=== PATIENT | female | born 1970 | race Caucasian/White ===

== ENCOUNTER 2016-05-13 20:38 | Emergency (ER) | payer OTHER ==
[~2016-05-13] VITALS: Ht 167.6 cm; Wt 98.0 kg
[~2016-05-13 20:38] MED LIST: 'CLONIDINE0.1 MG PO; 'PARAFON FORTE500 M1 PO; ALBUTEROL0.09 MG/A2 IH; ALBUTEROL0.09 MG/A2 INH; ALBUTEROL2.5 MG/0.5 INH; ALL DAY ALLERGY10 MG PO; ALPRAZOLAM2 MG PO; AMITRIPTYLINE25 MG PO; AMOXICILLIN500 M2 PO; AMOXICILLIN500 MG PO; AMOXIL500 MG PO; ANAPROX DS550 MG PO; ARTHRITIS PAI42.5 GM TP; ATARAX,VISTARIL50 MG PO; ATIVAN; ATIVAN0.5 MG PO; ATIVAN1 MG PO; AUGMENTIN 875 M1 TAB PO; AUGMENTIN 875875 MG PO; AYGESTIN5 MG PO; BACTRIM DS 8001 TA1 PO; BACTRIM DS 8001 TAB PO; BENADRYL12.5 MG/5 PO; BENADRYL25 M2 PO; BENADRYL25 MG PO; BENADRYL50 MG PO; BENTYL20 MG PO; CARBIDOPA/LEVOD1 TA1 PO; CATAFLAM50 MG PO; CELEXA10 MG PO; CELEXA40 MG PO; CETIRIZINE HCL10 M1 PO; CIPRO250 MG PO; CIPRO500 MG PO; CIPROFLOXACIN500 MG PO; CITALOPRAM HYDR40 MG PO; CLEOCIN150 MG PO; COGENTIN1 MG PO; COMPAZINE10 MG PO; CORDROL20 MG PO; CORTISPORIN SUS10 ML OT; CYCLOBENZAPRINE10 MG PO; CYCLOBENZAPRINE5 M3 PO; DARVOCET N 1001 TAB PO; DAYPRO600 M1 PO; DEPAKOTE500 MG PO; DESYREL100 MG PO; DIAZEPAM10 MG PO; DICLOFENAC POTA50 MG PO; DICLOFENAC50 MG PO; DIFLUCAN150 MG PO; DILANTIN KAPSE100 MG PO; DILANTIN PO; DILANTIN100 MG PO; FIORICET 50-301 EACH PO; FLAGYL500 MG PO; FLEXERIL10 MG PO; FLEXERIL5 MG PO; FLONASE 0.05% 121 EA NAS; FLUVOXAMINE100 MG PO; FUROSEMIDE40 MG PO; Fleet Adult Enem1 EA R; HALDOL0.5 M1 PO; HYDROCODONE BIT1 T11 PO; HYDROXYZINE HCL25 MG PO; IBU-8800 MG PO; IBU800 M1 PO; IMITREX50 MG; IMITREX50 MG PO; K-DUR 20MEQ20 MEQ PO; K-TAB20 MEQ PO; KEFLEX500 MG PO; KENALOG0.1% TP; LASIX40 MG PO; LIDOCAINE HCL100 M1 MM; LOMOTIL 0.025 M1 TA1 PO; LUVOX100 MG PO; MACROBID100 M1 PO; MEDROL DOSEPAK4 MG PO; MELLARIL50 MG PO; MIRALAX POWDER17 G1 PO; MOBIC7.5 MG PO; MOTRIN800 MG PO; MUCINEX1200 M1 PO; MYCOSTATIN100000 U/M PO; Miralax Powder255 GM PO; NAPROSYN500 MG PO; NATURE'S BLEND F1 MG PO; NEOSPORIN1 OIN OP; NEURONTIN300 MG PO; NEURONTIN400 MG PO; NORCO 5-325 TA1 EACH PO; NORFLEX100 MG PO; NYSTATIN CREAM15 GM T; OMEPRAZOLE40 MG PO; ONE DAILY WOMEN1 TAB PO; OXYBUTYNIN10 MG PO; PEPCID20 MG PO; PEPCID40 MG PO; PHENERGAN25 M1 PO; POTASSIUM CHLO25 MEQ PO; PREDNICOT20 MG PO; PREDNISONE10 MG PO; PREDNISONE50 MG PO; PRILOSEC20 M1 PO; PRILOSEC20 MG; PROVENTIL0.09 MG/AC IH; PYRIDIUM200 M1 PO; Phenergan25 MG PO; ROBAXIN500 MG PO; ROBAXIN750 MG PO; SEPTRA DS 800 M1 TAB PO; SEROQUEL XR400 MG PO; SUBOXONE 8 MG-1 EACH SL; SUMYCIN,ACHROM500 M1 PO; TEGRETOL200 MG PO; TESSALON PERLE200 MG PO; THERA TABS1 TAB PO; THORAZINE10 MG PO; THORAZINE100 MG PO; TORADOL10 MG PO; TRAMADOL HCL50 MG PO; TRAZADONE HYDR100 MG; TRAZODONE100 MG PO; TRIMOX500 MG PO; TYLENOL W/ CODEI5 ML PO; TYLENOL W/CODEI1 TA2 PO; ULTRAM50 MG PO; VALIUM10 MG PO; VALIUM2 MG PO; VENTOLIN NEBULES3 ML IH; VIBRAMYCIN100 MG PO; VICODIN 5-3001 EACH PO; VICODIN 500 MG-1 TAB PO; VISTARIL25 M1; VISTARIL50 MG PO; VITAMIN B-11 TAB PO; VOLTAREN50 M1 PO; VOLTAREN75 MG PO; VRAYLAR3 MG PO; Ventolin 02.5 MG/3 M INH; XANAX0.5 MG PO; XANAX1 MG; XANAX1 MG PO; XANAX2 MG PO; ZITHROMAX Z PA250 MG PO; ZITHROMAX250 MG PO; ZOFRAN 4 MG ED2 TAB PO; ZOFRAN ODT4 MG SL; ZOFRAN ODT8 MG PO; ZOFRAN4 MG PO; Zofran4 MG PO
[2016-05-13 21:04] LABS: BASO % 0.5 % (0.0-1.0); EOS # 0.1 10*3/uL (0.0-0.4); EOS % 1.9 % (1.0-4.0); HEMATOCRIT 35.6 % (37.0-47.0); HEMOGLOBIN 11.6 g/dl (12.0-16.0); LYMPH # 3.4 10*3/uL (1.3-4.4); LYMPH % 46.6 % (27.0-41.0); MEAN CELL VOLUME 84.8 fl (81.0-99.0); MEAN CORPUSCULAR HGB 27.6 pg (27.0-31.0); MEAN CORPUSCULAR HGB CONC 32.6 g/dl (33.0-37.0); MEAN PLATELET VOLUME 9.5 fl (9.6-12.3); MONO # 0.6 10*3/uL (0.1-1.0); MONO % 7.7 % (3.0-9.0); NEUT # 3.1 10*3/uL (2.3-7.9); PLATELET COUNT AUTOMATED 259 10*3/uL (130-400); RED CELL DISTRI WIDTH 16.7 % (0-14.5); WHITE BLOOD COUNT 7.3 10*3/uL (4.8-10.8)
[2016-05-13 21:14] LABS: PROTHROMBIN TIME 10.6 SECONDS (9.0-12.4)
[2016-05-13 21:23] LABS: ALBUMIN 3.5 gm/dl (3.1-4.5); ALKALINE PHOSPHATASE 93 U/L (45-117); BILIRUBIN, TOTAL 0.3 mg/dl (0.2-1.0); BUN 4 mg/dl (7-24); CARBON DIOXIDE 27 mmol/L (21-32); CHLORIDE 105 mmol/L (98-107); EST GLOM FILT AFRICAN AMERICAN > 60 ml/min; GLUCOSE 128 mg/dL (65-99); MAGNESIUM 2.1 mg/dL (1.5-2.1); POTASSIUM 3.7 mmol/L (3.5-5.1); SGOT/AST 13 IU/L (3-35); SGPT/ALT 14 U/L (12-78); SODIUM 141 mmol/L (136-145); TOTAL PROTEIN 7.3 gm/dL (6.4-8.2)
[2016-05-13 21:25] LABS: TROPONIN I < 0.015 ng/ml (<0.5)
[2016-05-14] MEDS ORDERED: SUBOXONE 8 MG-1 EACH SL (01:11)
[2016-07-01] MEDS ORDERED: PRILOSEC10 MG/Pack PO (20:41)
[2016-07-01] MEDS ORDERED: KENALOG 0.1%80 GM T (22:24)
[2016-07-01] MEDS ORDERED: MACROBID100 M1 PO (22:24)
[2016-07-01] MEDS ORDERED: Motrin,Rufen800 MG PO (22:24)
== END 2016-05-14 02:00 | disposition left against medical advice (07) ==
LOC: ED 20:38
PROVIDERS: Student in an Organized Health Care Education/Training Program
DX: R07.89 Other chest pain (principal); F17.210 Nicotine dependence, cigarettes, uncomplicated; F41.9 Anxiety disorder, unspecified; J44.9 Chronic obstructive pulmonary disease, unspecified; G89.29 Other chronic pain; M51.36 Other intervertebral disc degeneration, lumbar region; F32.9 Major depressive disorder, single episode, unspecified; E11.65 Type 2 diabetes mellitus with hyperglycemia; E66.9 Obesity, unspecified; Z68.34 Body mass index [BMI] 34.0-34.9, adult; Z98.51 Tubal ligation status; Z98.890 Other specified postprocedural states; Z91.018 Allergy to other foods

== ENCOUNTER 2016-07-10 09:52 | Emergency (ER) | payer OTHER ==
[~2016-07-10 09:52] MED LIST changes: +KENALOG 0.1%80 GM T; +Motrin,Rufen800 MG PO; +PRILOSEC10 MG/Pack PO
== END 2016-07-10 10:48 | disposition home or self-care (01) ==
LOC: ED 09:52
DX: T23.231A Burn of second degree of multiple right fingers (nail), not including thumb, initial encounter (principal); F17.200 Nicotine dependence, unspecified, uncomplicated; Z91.018 Allergy to other foods; X58.XXXA Exposure to other specified factors, initial encounter; Y93.89 Activity, other specified; Y92.9 Unspecified place or not applicable; Y99.9 Unspecified external cause status

== ENCOUNTER 2016-07-22 16:26 | Emergency (ER) | payer OTHER ==
[~2016-07-22] VITALS: Wt 76.2 kg
[2016-07-22 17:10] LABS: BASO % 0.6 % (0.0-1.0); EOS # 0.2 10*3/uL (0.0-0.4); EOS % 3.1 % (1.0-4.0); HEMATOCRIT 37.6 % (37.0-47.0); HEMOGLOBIN 12.1 g/dl (12.0-16.0); LYMPH # 3.6 10*3/uL (1.3-4.4); LYMPH % 53.7 % (27.0-41.0); MEAN CELL VOLUME 92.2 fl (81.0-99.0); MEAN CORPUSCULAR HGB 29.7 pg (27.0-31.0); MEAN CORPUSCULAR HGB CONC 32.2 g/dl (33.0-37.0); MONO # 0.5 10*3/uL (0.1-1.0); MONO % 6.6 % (3.0-9.0); NEUT # 2.4 10*3/uL (2.3-7.9); NEUT % 35.9 % (47.0-73.0); PLATELET COUNT AUTOMATED 312 10*3/uL (130-400); RED BLOOD COUNT 4.08 10*6/uL (4.10-5.10); RED CELL DISTRI WIDTH 17.2 % (0-14.5); WHITE BLOOD COUNT 6.8 10*3/uL (4.8-10.8)
[2016-07-22 17:20] LABS: BILIRUBIN NEGATIVE (NEGATIVE); BLOOD 3+ (NEGATIVE); CLARITY SL CLOUDY (CLEAR); COLOR YELLOW (YELLOW); GLUCOSE NEGATIVE (NEGATIVE); KETONE NEGATIVE (NEGATIVE); LEUKO ESTERASE NEGATIVE (NEGATIVE); NITRITE NEGATIVE (NEGATIVE); PH 5.5 (5.0-9.0); PROTEIN NEGATIVE (NEGATIVE); SPECIFIC GRAVITY 1.015 (1.005-1.030); UROBILINOGEN 0.2 E.U./dl (0.2-1.0)
[2016-07-22 17:26] LABS: BACTERIA TRACE; RBC TNTC rbc/hpf (0-2); URINE REFLEX COMMENT YES (NO)
== END 2016-07-22 18:09 | disposition home or self-care (01) ==
LOC: ED 16:26
PROVIDERS: Family Medicine Adult Medicine
DX: N93.9 Abnormal uterine and vaginal bleeding, unspecified (principal); F41.9 Anxiety disorder, unspecified; G89.29 Other chronic pain; J44.9 Chronic obstructive pulmonary disease, unspecified; M51.36 Other intervertebral disc degeneration, lumbar region; F32.9 Major depressive disorder, single episode, unspecified; E78.00 Pure hypercholesterolemia, unspecified; F17.210 Nicotine dependence, cigarettes, uncomplicated; G43.909 Migraine, unspecified, not intractable, without status migrainosus; E66.9 Obesity, unspecified; E55.9 Vitamin D deficiency, unspecified; Z68.34 Body mass index [BMI] 34.0-34.9, adult; Z98.51 Tubal ligation status; Z98.890 Other specified postprocedural states

== ENCOUNTER 2016-08-18 09:36 | Emergency (ER) | payer OTHER ==
[~2016-08-18] VITALS: Ht 165.1 cm; Wt 99.8 kg
[2016-08-18] MEDS ORDERED: DOXYCYCLINE100 M3 PO (11:19)
[2016-08-18] MEDS ORDERED: PREDNISONE10 MG PO (11:19)
[2016-08-18] MEDS ORDERED: DUONEB 3 MG/3 ML3 M1 INH (11:19)
== END 2016-08-18 11:25 | disposition home or self-care (01) ==
LOC: ED 09:36
DX: J20.9 Acute bronchitis, unspecified (principal); F17.210 Nicotine dependence, cigarettes, uncomplicated; Z91.018 Allergy to other foods; Z79.899 Other long term (current) drug therapy

== ENCOUNTER 2016-08-18 21:48 | Emergency (ER) | payer OTHER ==
[~2016-08-18] VITALS: Ht 165.1 cm; Wt 90.7 kg
--- NOTE | ~2016-08-18 | EKG ---
[employer], [place] ELECTROCARDIOGRAM REPORT NAME: JAE GORDON UNIT #: [id number] ROOM: DOCTOR: YAHIR DACOSTA MD BIRTHDATE: [birth year] DOS: 08/18/2016 TIME: 2208 hours. FINDINGS: 1. Sinus rhythm at the rate of 95. 2. Normal electrocardiogram. YAHIR DACOSTA MD CM:EKGRPT:ELECTROCARDIOGRAM REPORT [id number] YAHIR DACOSTA MD
[~2016-08-18 21:48] MED LIST changes: +DOXYCYCLINE100 M3 PO; +DUONEB 3 MG/3 ML3 M1 INH
[2016-08-18 22:22] LABS: HEMATOCRIT 37.6 % (37.0-47.0); HEMOGLOBIN 12.2 g/dl (12.0-16.0); LYMPH # 0.7 10*3/uL (1.3-4.4); LYMPH % 11.7 % (27.0-41.0); MEAN CELL VOLUME 92.2 fl (81.0-99.0); MEAN CORPUSCULAR HGB 29.9 pg (27.0-31.0); MEAN CORPUSCULAR HGB CONC 32.4 g/dl (33.0-37.0); MEAN PLATELET VOLUME 9.8 fl (9.6-12.3); MONO # 0.1 10*3/uL (0.1-1.0); MONO % 1.9 % (3.0-9.0); NEUT # 5.3 10*3/uL (2.3-7.9); NEUT % 85.9 % (47.0-73.0); PLATELET COUNT AUTOMATED 297 10*3/uL (130-400); RED BLOOD COUNT 4.08 10*6/uL (4.10-5.10); RED CELL DISTRI WIDTH 16.2 % (0-14.5); WHITE BLOOD COUNT 6.2 10*3/uL (4.8-10.8)
[2016-08-18 22:39] LABS: ALBUMIN 3.7 gm/dl (3.1-4.5); ALKALINE PHOSPHATASE 82 U/L (45-117); BILIRUBIN, TOTAL 0.3 mg/dl (0.2-1.0); BUN 14 mg/dl (7-24); CARBON DIOXIDE 24 mmol/L (21-32); CHLORIDE 106 mmol/L (98-107); EST GLOM FILT AFRICAN AMERICAN > 60 ml/min; GLUCOSE 134 mg/dL (65-99); POTASSIUM 4.7 mmol/L (3.5-5.1); SGOT/AST 10 IU/L (3-35); SGPT/ALT 9 U/L (12-78); SODIUM 140 mmol/L (136-145); TOTAL PROTEIN 7.6 gm/dL (6.4-8.2)
[2016-08-18 22:40] LABS: TROPONIN I < 0.015 ng/ml (<0.045)
[2016-08-18 22:54] LABS: URINE AMPHETAMINES < 1000 (1000ng/ml); URINE BARBITURATES < 200 (200ng/ml); URINE COCAINE < 300 (300ng/ml)
[2016-08-18 23:28] LABS: BILIRUBIN NEGATIVE (NEGATIVE); BLOOD TRACE-INTACT (NEGATIVE); CLARITY CLEAR (CLEAR); COLOR YELLOW (YELLOW); GLUCOSE NEGATIVE (NEGATIVE); KETONE TRACE (NEGATIVE); LEUKO ESTERASE NEGATIVE (NEGATIVE); NITRITE NEGATIVE (NEGATIVE); PH 5.5 (5.0-9.0); PROTEIN 1+ (NEGATIVE); SPECIFIC GRAVITY >= 1.030 (1.005-1.030); UROBILINOGEN 0.2 E.U./dl (0.2-1.0)
[2016-08-18 23:43] LABS: BACTERIA 2+; EPITHELIAL CELLS 0-2; URINE REFLEX COMMENT YES (NO)
== END 2016-08-19 00:04 | disposition home or self-care (01) ==
LOC: ED 21:48
PROVIDERS: Family Medicine; Physician Assistant
DX: R55 Syncope and collapse (principal); R30.0 Dysuria; F41.9 Anxiety disorder, unspecified; F17.200 Nicotine dependence, unspecified, uncomplicated; Z91.018 Allergy to other foods; Z79.899 Other long term (current) drug therapy

== ENCOUNTER 2016-08-26 18:03 | Inpatient (IN) | payer OTHER ==
[~2016-08-26] VITALS: Ht 167.6 cm; Wt 82.2 kg
[2016-08-26 18:03] VITALS: BP 116/64
[2016-08-26 18:59] LABS: BASO % 0.5 % (0.0-1.0); EOS # 0.2 10*3/uL (0.0-0.4); EOS % 4.3 % (1.0-4.0); HEMATOCRIT 36.8 % (37.0-47.0); LYMPH # 1.4 10*3/uL (1.3-4.4); LYMPH % 38.6 % (27.0-41.0); MEAN CELL VOLUME 93.2 fl (81.0-99.0); MEAN CORPUSCULAR HGB 30.4 pg (27.0-31.0); MEAN CORPUSCULAR HGB CONC 32.6 g/dl (33.0-37.0); MEAN PLATELET VOLUME 9.5 fl (9.6-12.3); MONO # 0.3 10*3/uL (0.1-1.0); MONO % 9.2 % (3.0-9.0); NEUT # 1.7 10*3/uL (2.3-7.9); NEUT % 46.9 % (47.0-73.0); PLATELET COUNT AUTOMATED 198 10*3/uL (130-400); RED BLOOD COUNT 3.95 10*6/uL (4.10-5.10); RED CELL DISTRI WIDTH 15.9 % (0-14.5); WHITE BLOOD COUNT 3.7 10*3/uL (4.8-10.8)
[2016-08-26 19:00] VITALS: BP 122/70
[2016-08-26 19:10] LABS: PROTHROMBIN TIME 10.7 SECONDS (9.0-12.4)
[2016-08-26 19:20] LABS: ALBUMIN 3.2 gm/dl (3.1-4.5); ALKALINE PHOSPHATASE 96 U/L (45-117); BILIRUBIN, TOTAL 0.4 mg/dl (0.2-1.0); BUN 7 mg/dl (7-24); C-REACTIVE PROTEIN 2.14 MG/DL (0-0.3); CARBON DIOXIDE 26 mmol/L (21-32); CHLORIDE 106 mmol/L (98-107); CKMB < 0.5 ng/ml (0.5-3.6); CPK 25 U/L (26-192); EST GLOM FILT AFRICAN AMERICAN > 60 ml/min; GLUCOSE 110 mg/dL (65-99); MAGNESIUM 2.4 mg/dL (1.5-2.1); POTASSIUM 4.1 mmol/L (3.5-5.1); SGOT/AST 199 IU/L (3-35); SGPT/ALT 179 U/L (12-78); SODIUM 139 mmol/L (136-145); TOTAL PROTEIN 6.5 gm/dL (6.4-8.2); TROPONIN I < 0.015 ng/ml (<0.045)
[2016-08-26 19:25] LABS: BILIRUBIN NEGATIVE (NEGATIVE); BLOOD TRACE-INTACT (NEGATIVE); CLARITY SL CLOUDY (CLEAR); COLOR YELLOW (YELLOW); GLUCOSE NEGATIVE (NEGATIVE); KETONE NEGATIVE (NEGATIVE); LEUKO ESTERASE NEGATIVE (NEGATIVE); NITRITE NEGATIVE (NEGATIVE); PROTEIN NEGATIVE (NEGATIVE); UROBILINOGEN 0.2 E.U./dl (0.2-1.0)
[2016-08-26 19:34] LABS: BACTERIA 1+; URINE REFLEX COMMENT NO (NO); WBC 0-2 wbc/hpf (0-5)
[2016-08-26 20:00] VITALS: BP 112/68; BP 94/57
[2016-08-26 20:58] LABS: URINE AMPHETAMINES < 1000 (1000ng/ml); URINE BARBITURATES < 200 (200ng/ml); URINE COCAINE < 300 (300ng/ml)
== END 2016-08-26 23:23 | disposition left against medical advice (07) | DRG 313 ==
LOC: ED 18:03 → EDHOLD 19:44 → 5E 20:03
PROVIDERS: Nurse Practitioner Family; Student in an Organized Health Care Education/Training Program
DX: R07.2 Precordial pain (principal); R65.10 Systemic inflammatory response syndrome (SIRS) of non-infectious origin without acute organ dysfunction; J44.9 Chronic obstructive pulmonary disease, unspecified; F19.10 Other psychoactive substance abuse, uncomplicated; F41.9 Anxiety disorder, unspecified; R73.9 Hyperglycemia, unspecified; E83.41 Hypermagnesemia; R74.0 Nonspecific elevation of levels of transaminase and lactic acid dehydrogenase [LDH]; G57.93 Unspecified mononeuropathy of bilateral lower limbs; Z53.21 Procedure and treatment not carried out due to patient leaving prior to being seen by health care provider; G89.29 Other chronic pain; E66.9 Obesity, unspecified; D72.819 Decreased white blood cell count, unspecified; M51.36 Other intervertebral disc degeneration, lumbar region; F32.9 Major depressive disorder, single episode, unspecified; B18.2 Chronic viral hepatitis C; G43.909 Migraine, unspecified, not intractable, without status migrainosus; E78.00 Pure hypercholesterolemia, unspecified; Z82.49 Family history of ischemic heart disease and other diseases of the circulatory system; Z87.440 Personal history of urinary (tract) infections; Z86.711 Personal history of pulmonary embolism; Z87.891 Personal history of nicotine dependence; Z91.018 Allergy to other foods; Z91.048 Other nonmedicinal substance allergy status; Z79.899 Other long term (current) drug therapy; Z68.30 Body mass index [BMI] 30.0-30.9, adult

== ENCOUNTER 2016-08-30 21:49 | Emergency (ER) | payer OTHER ==
[~2016-08-30] VITALS: Ht 167.6 cm; Wt 81.6 kg
[2016-08-30 22:21] LABS: BILIRUBIN 1+ (NEGATIVE); BLOOD 3+ (NEGATIVE); CLARITY SL CLOUDY (CLEAR); COLOR YELLOW (YELLOW); GLUCOSE NEGATIVE (NEGATIVE); KETONE TRACE (NEGATIVE); LEUKO ESTERASE TRACE (NEGATIVE); NITRITE NEGATIVE (NEGATIVE); PROTEIN NEGATIVE (NEGATIVE); SPECIFIC GRAVITY >= 1.030 (1.005-1.030); UROBILINOGEN 0.2 E.U./dl (0.2-1.0)
[2016-08-30 22:30] LABS: BACTERIA 1+; URINE REFLEX COMMENT YES (NO)
[2016-08-30 22:47] LABS: BASO % 0.6 % (0.0-1.0); EOS # 0.2 10*3/uL (0.0-0.4); EOS % 3.4 % (1.0-4.0); HEMATOCRIT 39.4 % (37.0-47.0); HEMOGLOBIN 12.8 g/dl (12.0-16.0); LYMPH # 3.4 10*3/uL (1.3-4.4); LYMPH % 50.7 % (27.0-41.0); MEAN CELL VOLUME 93.1 fl (81.0-99.0); MEAN CORPUSCULAR HGB 30.3 pg (27.0-31.0); MEAN CORPUSCULAR HGB CONC 32.5 g/dl (33.0-37.0); MEAN PLATELET VOLUME 10.3 fl (9.6-12.3); MONO # 0.6 10*3/uL (0.1-1.0); MONO % 9.1 % (3.0-9.0); NEUT # 2.4 10*3/uL (2.3-7.9); NEUT % 35.8 % (47.0-73.0); PLATELET COUNT AUTOMATED 212 10*3/uL (130-400); RED BLOOD COUNT 4.23 10*6/uL (4.10-5.10); RED CELL DISTRI WIDTH 16.6 % (0-14.5); WHITE BLOOD COUNT 6.7 10*3/uL (4.8-10.8)
[2016-08-30 23:01] LABS: URINE AMPHETAMINES < 1000 (1000ng/ml); URINE BARBITURATES < 200 (200ng/ml); URINE COCAINE < 300 (300ng/ml)
[2016-08-30 23:03] LABS: ALBUMIN 3.4 gm/dl (3.1-4.5); ALKALINE PHOSPHATASE 186 U/L (45-117); BILIRUBIN, TOTAL 0.3 mg/dl (0.2-1.0); BUN 8 mg/dl (7-24); CARBON DIOXIDE 26 mmol/L (21-32); CHLORIDE 107 mmol/L (98-107); EST GLOM FILT AFRICAN AMERICAN > 60 ml/min; GLUCOSE 98 mg/dL (65-99); POTASSIUM 3.9 mmol/L (3.5-5.1); SGOT/AST 103 IU/L (3-35); SGPT/ALT 253 U/L (12-78); SODIUM 137 mmol/L (136-145); TOTAL PROTEIN 7.2 gm/dL (6.4-8.2)
[2016-08-30 23:05] LABS: B-hCG (QUALITATIVE) NEGATIVE (NEGATIVE)
[2016-08-30] MEDS ORDERED: ATIVAN1 MG PO (23:32)
[2016-08-30] MEDS ORDERED: Motrin,Rufen800 MG PO (23:32)
[2016-08-30] MEDS ORDERED: MACROBID100 M1 PO (23:37)
== END 2016-08-30 23:46 | disposition home or self-care (01) ==
LOC: ED 21:49
PROVIDERS: Emergency Medicine Emergency Medical Services
DX: F41.9 Anxiety disorder, unspecified (principal); R82.71 Bacteriuria; B19.20 Unspecified viral hepatitis C without hepatic coma; J44.9 Chronic obstructive pulmonary disease, unspecified; F32.9 Major depressive disorder, single episode, unspecified; E78.00 Pure hypercholesterolemia, unspecified; F17.210 Nicotine dependence, cigarettes, uncomplicated; G43.909 Migraine, unspecified, not intractable, without status migrainosus; Z91.018 Allergy to other foods; Z79.899 Other long term (current) drug therapy

== ENCOUNTER 2016-10-11 16:12 | Emergency (ER) | payer OTHER ==
[~2016-10-11] VITALS: Ht 167.6 cm; Wt 59.0 kg
[2016-10-11] MEDS ORDERED: OMEPRAZOLE40 MG PO (16:16)
[2016-10-11] MEDS ORDERED: ZOLOFT50 MG PO (16:16)
[2016-10-11] MEDS ORDERED: BUSPAR5 MG PO (16:16)
[2016-10-11] MEDS ORDERED: VISTARIL25 M2 PO (16:17)
[2016-10-11] MEDS ORDERED: SUBOXONE 8 MG-1 EACH SL (16:17)
[2016-10-11 16:36] LABS: BILIRUBIN 1+ (NEGATIVE); BLOOD NEGATIVE (NEGATIVE); CLARITY SL CLOUDY (CLEAR); COLOR YELLOW (YELLOW); GLUCOSE NEGATIVE (NEGATIVE); KETONE NEGATIVE (NEGATIVE); LEUKO ESTERASE NEGATIVE (NEGATIVE); NITRITE NEGATIVE (NEGATIVE); PH 5.5 (5.0-9.0); PROTEIN TRACE (NEGATIVE); SPECIFIC GRAVITY >= 1.030 (1.005-1.030)
[2016-10-11 16:42] LABS: BACTERIA 2+; RBC 0-2 rbc/hpf (0-2); URINE REFLEX COMMENT YES (NO)
[2016-10-11 16:44] LABS: URINE AMPHETAMINES < 1000 (1000ng/ml); URINE BARBITURATES < 200 (200ng/ml); URINE COCAINE < 300 (300ng/ml)
[2016-10-11 17:12] LABS: BASO % 0.3 % (0.0-1.0); EOS # 0.2 10*3/uL (0.0-0.4); EOS % 2.2 % (1.0-4.0); HEMATOCRIT 36.3 % (37.0-47.0); HEMOGLOBIN 11.8 g/dl (12.0-16.0); LYMPH # 3.5 10*3/uL (1.3-4.4); LYMPH % 45.7 % (27.0-41.0); MEAN CELL VOLUME 92.4 fl (81.0-99.0); MEAN CORPUSCULAR HGB CONC 32.5 g/dl (33.0-37.0); MEAN PLATELET VOLUME 9.8 fl (9.6-12.3); MONO # 0.6 10*3/uL (0.1-1.0); MONO % 7.3 % (3.0-9.0); NEUT # 3.4 10*3/uL (2.3-7.9); NEUT % 44.2 % (47.0-73.0); PLATELET COUNT AUTOMATED 261 10*3/uL (130-400); RED BLOOD COUNT 3.93 10*6/uL (4.10-5.10); RED CELL DISTRI WIDTH 14.7 % (0-14.5); WHITE BLOOD COUNT 7.6 10*3/uL (4.8-10.8)
[2016-10-11 17:28] LABS: ALBUMIN 3.4 gm/dl (3.1-4.5); ALKALINE PHOSPHATASE 90 U/L (45-117); BILIRUBIN, TOTAL 0.2 mg/dl (0.2-1.0); BUN 6 mg/dl (7-24); C-REACTIVE PROTEIN 0.63 MG/DL (0-0.3); CARBON DIOXIDE 32 mmol/L (21-32); CHLORIDE 106 mmol/L (98-107); EST GLOM FILT AFRICAN AMERICAN > 60 ml/min; GLUCOSE 104 mg/dL (65-99); POTASSIUM 4.1 mmol/L (3.5-5.1); SGOT/AST 14 IU/L (3-35); SGPT/ALT 10 U/L (12-78); SODIUM 146 mmol/L (136-145); TOTAL PROTEIN 6.9 gm/dL (6.4-8.2)
[2016-10-11] MEDS ORDERED: BENTYL10 MG PO (18:01)
[2016-10-11] MEDS ORDERED: CYCLOBENZAPRINE5 M3 PO (18:01)
== END 2016-10-11 18:14 | disposition home or self-care (01) ==
LOC: ED 16:12
PROVIDERS: Physician Assistant
DX: M62.838 Other muscle spasm (principal); R10.30 Lower abdominal pain, unspecified; F17.200 Nicotine dependence, unspecified, uncomplicated; Z79.899 Other long term (current) drug therapy

== ENCOUNTER → 2016-10-29 | Emergency (ER) | payer OTHER ==
[~2016-10-29] VITALS: Ht 165.1 cm; Wt 86.2 kg
[~2016-10-29] MED LIST changes: +BENTYL10 MG PO; +BUSPAR5 MG PO; +VISTARIL25 M2 PO; +VISTARIL25 MG PO; +ZOLOFT50 MG PO
[2016-10-29 09:35] LABS: BASO % 0.6 % (0.0-1.0); EOS # 0.2 10*3/uL (0.0-0.4); EOS % 3.7 % (1.0-4.0); HEMATOCRIT 37.5 % (37.0-47.0); HEMOGLOBIN 12.2 g/dl (12.0-16.0); LYMPH # 2.4 10*3/uL (1.3-4.4); LYMPH % 46.7 % (27.0-41.0); MEAN CELL VOLUME 91.2 fl (81.0-99.0); MEAN CORPUSCULAR HGB 29.7 pg (27.0-31.0); MEAN CORPUSCULAR HGB CONC 32.5 g/dl (33.0-37.0); MEAN PLATELET VOLUME 9.8 fl (9.6-12.3); MONO # 0.4 10*3/uL (0.1-1.0); NEUT # 2.1 10*3/uL (2.3-7.9); NEUT % 41.6 % (47.0-73.0); PLATELET COUNT AUTOMATED 323 10*3/uL (130-400); RED BLOOD COUNT 4.11 10*6/uL (4.10-5.10); WHITE BLOOD COUNT 5.1 10*3/uL (4.8-10.8)
[2016-10-29 09:48] LABS: ALBUMIN 3.4 gm/dl (3.1-4.5); ALKALINE PHOSPHATASE 90 U/L (45-117); BILIRUBIN, TOTAL 0.3 mg/dl (0.2-1.0); BUN 7 mg/dl (7-24); C-REACTIVE PROTEIN 0.86 MG/DL (0-0.3); CARBON DIOXIDE 28 mmol/L (21-32); CHLORIDE 105 mmol/L (98-107); EST GLOM FILT AFRICAN AMERICAN > 60 ml/min; GLUCOSE 121 mg/dL (65-99); POTASSIUM 4.1 mmol/L (3.5-5.1); PROTHROMBIN TIME 10.5 SECONDS (9.0-12.4); SGOT/AST 15 IU/L (3-35); SGPT/ALT 10 U/L (12-78); SODIUM 140 mmol/L (136-145); TOTAL PROTEIN 7.4 gm/dL (6.4-8.2)
== END ==
LOC: ED 08:50
PROVIDERS: Emergency Medicine
DX: R11.2 Nausea with vomiting, unspecified (principal); R42 Dizziness and giddiness; R10.32 Left lower quadrant pain; J44.9 Chronic obstructive pulmonary disease, unspecified; E78.00 Pure hypercholesterolemia, unspecified; G43.909 Migraine, unspecified, not intractable, without status migrainosus; F19.10 Other psychoactive substance abuse, uncomplicated; F17.210 Nicotine dependence, cigarettes, uncomplicated; Z91.018 Allergy to other foods; Z79.899 Other long term (current) drug therapy; Z86.19 Personal history of other infectious and parasitic diseases

== ENCOUNTER 2016-11-08 13:58 | Emergency (ER) | payer OTHER ==
[~2016-11-08] VITALS: Ht 167.6 cm; Wt 84.8 kg
[~2016-11-08 13:58] MED LIST changes: -VISTARIL25 MG PO
[2016-11-08] MEDS ORDERED: 'CLONIDINE0.1 MG PO (15:36)
[2016-11-08] MEDS ORDERED: VISTARIL25 MG PO (15:36)
[2016-11-08] MEDS ORDERED: ZOFRAN4 MG PO (15:36)
== END 2016-11-08 15:50 | disposition home or self-care (01) ==
LOC: ED 13:58
DX: F13.239 Sedative, hypnotic or anxiolytic dependence with withdrawal, unspecified (principal); R03.0 Elevated blood-pressure reading, without diagnosis of hypertension; J44.9 Chronic obstructive pulmonary disease, unspecified; E78.00 Pure hypercholesterolemia, unspecified; G43.909 Migraine, unspecified, not intractable, without status migrainosus; F17.210 Nicotine dependence, cigarettes, uncomplicated; Z91.018 Allergy to other foods; Z79.899 Other long term (current) drug therapy; Z86.19 Personal history of other infectious and parasitic diseases

== ENCOUNTER 2016-12-04 19:10 | Emergency (ER) | payer OTHER ==
[~2016-12-04] VITALS: Ht 167.6 cm; Wt 84.8 kg
[~2016-12-04 19:10] MED LIST changes: +VISTARIL25 MG PO
[2016-12-04 19:29] LABS: BASO % 0.3 % (0.0-1.0); EOS # 0.1 10*3/uL (0.0-0.4); EOS % 1.7 % (1.0-4.0); HEMATOCRIT 37.7 % (37.0-47.0); HEMOGLOBIN 12.3 g/dl (12.0-16.0); LYMPH # 3.2 10*3/uL (1.3-4.4); LYMPH % 45.5 % (27.0-41.0); MEAN CORPUSCULAR HGB 29.4 pg (27.0-31.0); MEAN CORPUSCULAR HGB CONC 32.6 g/dl (33.0-37.0); MEAN PLATELET VOLUME 10.2 fl (9.6-12.3); MONO # 0.4 10*3/uL (0.1-1.0); MONO % 6.3 % (3.0-9.0); NEUT # 3.2 10*3/uL (2.3-7.9); NEUT % 46.1 % (47.0-73.0); PLATELET COUNT AUTOMATED 299 10*3/uL (130-400); RED BLOOD COUNT 4.19 10*6/uL (4.10-5.10); RED CELL DISTRI WIDTH 15.3 % (0-14.5)
[2016-12-04 19:39] LABS: PROTHROMBIN TIME 10.3 SECONDS (9.0-12.4)
[2016-12-04 19:46] LABS: ALBUMIN 3.9 gm/dl (3.1-4.5); ALKALINE PHOSPHATASE 98 U/L (45-117); BILIRUBIN, TOTAL 0.2 mg/dl (0.2-1.0); BUN 13 mg/dl (7-24); CARBON DIOXIDE 27 mmol/L (21-32); CHLORIDE 106 mmol/L (98-107); EST GLOM FILT AFRICAN AMERICAN > 60 ml/min; GLUCOSE 114 mg/dL (65-99); MAGNESIUM 2.1 mg/dL (1.5-2.1); POTASSIUM 4.2 mmol/L (3.5-5.1); SGOT/AST 16 IU/L (3-35); SGPT/ALT 16 U/L (12-78); SODIUM 138 mmol/L (136-145); TOTAL PROTEIN 7.8 gm/dL (6.4-8.2)
[2016-12-04 19:50] LABS: TROPONIN I < 0.015 ng/ml (<0.045)
[2016-12-04] MEDS ORDERED: XANAX1 MG PO (20:22)
[2016-12-05] MEDS ORDERED: CYCLOBENZAPRINE10 MG PO (14:55)
== END 2016-12-04 20:40 | disposition home or self-care (01) ==
LOC: ED 19:10
PROVIDERS: Emergency Medicine Emergency Medical Services
DX: F41.1 Generalized anxiety disorder (principal); F43.0 Acute stress reaction; J44.9 Chronic obstructive pulmonary disease, unspecified; E78.00 Pure hypercholesterolemia, unspecified; Z91.018 Allergy to other foods; Z79.899 Other long term (current) drug therapy; Z87.891 Personal history of nicotine dependence

== ENCOUNTER 2016-12-05 13:53 | Emergency (ER) | payer OTHER ==
[~2016-12-05] VITALS: Ht 167.6 cm; Wt 83.5 kg
[2016-12-05] MEDS ORDERED: CYCLOBENZAPRINE10 MG PO (14:55)
== END 2016-12-05 14:56 | disposition home or self-care (01) ==
LOC: ED 13:53
DX: T14.8 Other injury of unspecified body region (principal); M54.2 Cervicalgia; M25.511 Pain in right shoulder; M25.551 Pain in right hip; F17.210 Nicotine dependence, cigarettes, uncomplicated; Z91.018 Allergy to other foods; Z79.899 Other long term (current) drug therapy; Y04.0XXA Assault by unarmed brawl or fight, initial encounter; Y93.89 Activity, other specified; Y92.89 Other specified places as the place of occurrence of the external cause; Y99.8 Other external cause status

== ENCOUNTER 2016-12-09 19:18 | Emergency (ER) | payer OTHER ==
[~2016-12-09] VITALS: Ht 167.6 cm; Wt 79.4 kg
[2016-12-09] MEDS ORDERED: MEDROL DOSEPAK4 MG PO (21:19)
[2016-12-09] MEDS ORDERED: ROBAXIN-750750 MG PO (21:19)
[2016-12-09] MEDS ORDERED: CEPHALEXIN500 M1 PO (21:38)
== END 2016-12-09 22:18 | disposition home or self-care (01) ==
LOC: ED 19:18
DX: S39.012A Strain of muscle, fascia and tendon of lower back, initial encounter (principal); L03.032 Cellulitis of left toe; F17.210 Nicotine dependence, cigarettes, uncomplicated; Z98.51 Tubal ligation status; Z79.899 Other long term (current) drug therapy; Z91.041 Radiographic dye allergy status; Z91.018 Allergy to other foods; Y08.89XA Assault by other specified means, initial encounter; Y93.89 Activity, other specified; Y92.89 Other specified places as the place of occurrence of the external cause; Y99.9 Unspecified external cause status

== ENCOUNTER 2017-01-11 14:12 | Emergency (ER) | payer OTHER ==
[~2017-01-11] VITALS: Ht 167.6 cm; Wt 83.9 kg
[~2017-01-11 14:12] MED LIST changes: +CEPHALEXIN500 M1 PO; +ROBAXIN-750750 MG PO
[2017-01-11 15:19] LABS: BILIRUBIN NEGATIVE (NEGATIVE); BLOOD NEGATIVE (NEGATIVE); CLARITY SL CLOUDY (CLEAR); COLOR YELLOW (YELLOW); GLUCOSE NEGATIVE (NEGATIVE); KETONE NEGATIVE (NEGATIVE); LEUKO ESTERASE NEGATIVE (NEGATIVE); NITRITE NEGATIVE (NEGATIVE); PH 5.5 (5.0-9.0); UROBILINOGEN 0.2 E.U./dl (0.2-1.0)
[2017-01-11 15:24] LABS: BACTERIA 1+; WBC 0-2 wbc/hpf (0-5)
[2017-01-11 15:59] LABS: BASO % 0.5 % (0.0-1.0); EOS # 0.1 10*3/uL (0.0-0.4); EOS % 1.5 % (1.0-4.0); HEMATOCRIT 36.6 % (37.0-47.0); HEMOGLOBIN 11.9 g/dl (12.0-16.0); LYMPH # 2.4 10*3/uL (1.3-4.4); LYMPH % 39.5 % (27.0-41.0); MEAN CELL VOLUME 90.6 fl (81.0-99.0); MEAN CORPUSCULAR HGB 29.5 pg (27.0-31.0); MEAN CORPUSCULAR HGB CONC 32.5 g/dl (33.0-37.0); MEAN PLATELET VOLUME 10.4 fl (9.6-12.3); MONO # 0.4 10*3/uL (0.1-1.0); MONO % 7.4 % (3.0-9.0); NEUT % 50.8 % (47.0-73.0); PLATELET COUNT AUTOMATED 247 10*3/uL (130-400); RED BLOOD COUNT 4.04 10*6/uL (4.10-5.10); RED CELL DISTRI WIDTH 15.8 % (0-14.5)
[2017-01-11 16:19] LABS: ALBUMIN 3.5 gm/dl (3.1-4.5); ALKALINE PHOSPHATASE 86 U/L (45-117); BUN 9 mg/dl (7-24); CHLORIDE 108 mmol/L (98-107); CPK 43 U/L (26-192); CREATININE 0.69 mg/dL (0.55-1.02); LIPASE 116 U/L (73-393); MAGNESIUM 2.3 mg/dL (1.5-2.1); POTASSIUM 3.7 mmol/L (3.5-5.1); SGOT/AST 18 IU/L (3-35); SGPT/ALT 20 U/L (12-78); SODIUM 137 mmol/L (136-145); TOTAL PROTEIN 7.5 gm/dL (6.4-8.2)
[2017-01-11 16:24] LABS: ACT PARTIAL THROMBO TIME 25.1 SECONDS (20.8-31.5)
[2017-01-11 16:26] LABS: CKMB < 0.5 ng/ml (0.5-3.6); TROPONIN I < 0.015 ng/ml (<0.045)
== END 2017-01-11 19:39 | disposition left against medical advice (07) ==
LOC: ED 14:12
PROVIDERS: Nurse Practitioner Family
DX: R07.89 Other chest pain (principal); J44.9 Chronic obstructive pulmonary disease, unspecified; E66.9 Obesity, unspecified; M19.90 Unspecified osteoarthritis, unspecified site; F17.210 Nicotine dependence, cigarettes, uncomplicated; G89.29 Other chronic pain; G43.909 Migraine, unspecified, not intractable, without status migrainosus; E78.00 Pure hypercholesterolemia, unspecified; Z98.51 Tubal ligation status; Z98.890 Other specified postprocedural states; Z86.711 Personal history of pulmonary embolism; Z68.34 Body mass index [BMI] 34.0-34.9, adult; Z79.899 Other long term (current) drug therapy; Z86.73 Personal history of transient ischemic attack (TIA), and cerebral infarction without residual deficits

== ENCOUNTER 2017-01-27 18:45 | Inpatient (IN) | payer OTHER ==
[~2017-01-27] VITALS: Ht 165.1 cm; Wt 83.2 kg
--- NOTE | ~2017-01-27 | CON ---
[place], [place] REPORT OF CONSULTATION [id number] UN[facility] #: [id number] ROOM: [id number] DOCTOR: DION JOAQUIN ED.D (PANCHO) BIRTHDATE: [birth year] DOS: 01/28/2017 HISTORY OF PRESENT ILLNESS: The patient is a 46-year-old female referred by the hospitalist for an evaluation following an overdose of clonidine and Vistaril. At the present time, this patient is in the intensive care unit at [facility]. She states she is , but from her . She does have two sons and 2 daughters. She has been on SSI for quite some time. She does follow at the [facility] for her medical care and was in the Suboxone program with Dr. Oliveira. She has a history of opioid abuse, cocaine abuse and cannabis abuse. The patient was awake, alert and oriented in all three spheres. She states she was quite depressed yesterday, but states that she has no desire to commit suicide at this time and is not going to do anything to harm herself. She did follow up with Dr. Morales and Yumiko Manzano for counseling and medication management and will return there after she is discharged from the hospital. This patient does not appear to be having any hallucinations or delusional thoughts. In my opinion, this patient is not a danger to herself or others at this time. She states she will follow up with counseling and states that she was having some difficulty and was probably going to be evicted and became overwhelmed. She states she is feeling better now and is going to spend time with her daughter. DIAGNOSES: 1. Opioid addiction. 2. Cannabis abuse. 3. Pervasive depressive disorder. RECOMMENDATIONS: 1. This patient may be discharged when medically stable since she denies any suicidal ideation or plan. 2. The patient is to follow with Dr. Belén Manzano, clinical social service assistant. Thank you very much for this consult. DION JOAQUIN ED.D CM:CONSTR:REPORT OF CONSULTATION 1735 01/29/17 0305 interface
[2017-01-27 18:45] VITALS: BP 100/64
--- NOTE | 2017-01-27 19:24 | NUR ---
SPOKE WITH DR SINGH ABOUT WHETHER HE WOULD LIKE POSION CONTROL NOTIFIED AND DECLINED AND STATED HE JUST WANTS PT MONITORED
[2017-01-27 19:32] VITALS: BP 104/58
[2017-01-27 19:35] LABS: BASO % 0.7 % (0.0-1.0); EOS # 0.1 10*3/uL (0.0-0.4); HEMATOCRIT 37.9 % (37.0-47.0); HEMOGLOBIN 12.1 g/dl (12.0-16.0); LYMPH % 51.1 % (27.0-41.0); MEAN CELL VOLUME 92.9 fl (81.0-99.0); MEAN CORPUSCULAR HGB 29.7 pg (27.0-31.0); MEAN CORPUSCULAR HGB CONC 31.9 g/dl (33.0-37.0); MEAN PLATELET VOLUME 11.4 fl (9.6-12.3); MONO # 0.4 10*3/uL (0.1-1.0); MONO % 7.1 % (3.0-9.0); NEUT # 2.3 10*3/uL (2.3-7.9); NEUT % 38.9 % (47.0-73.0); PLATELET COUNT AUTOMATED 291 10*3/uL (130-400); RED BLOOD COUNT 4.08 10*6/uL (4.10-5.10); RED CELL DISTRI WIDTH 15.9 % (0-14.5); WHITE BLOOD COUNT 5.9 10*3/uL (4.8-10.8)
[2017-01-27 19:47] LABS: ACT PARTIAL THROMBO TIME 23.4 SECONDS (20.8-31.5)
[2017-01-27 19:52] LABS: ALBUMIN 3.5 gm/dl (3.1-4.5); ALKALINE PHOSPHATASE 83 U/L (45-117); BUN 10 mg/dl (7-24); CHLORIDE 108 mmol/L (98-107); CREATININE 1.02 mg/dL (0.55-1.02); MAGNESIUM 2.2 mg/dL (1.5-2.1); POTASSIUM 4.1 mmol/L (3.5-5.1); SGOT/AST 32 IU/L (3-35); SGPT/ALT 16 U/L (12-78); SODIUM 141 mmol/L (136-145); TOTAL PROTEIN 7.4 gm/dL (6.4-8.2)
[2017-01-27 19:53] LABS: ETHYL ALCOHOL < 3.0 mg/dl (<3); TROPONIN I < 0.015 ng/ml (<0.045)
--- NOTE | 2017-01-27 20:22 | NUR ---
OBTAINED URINE VIA STRAIGHT CATH. PT COOPERATIVE. FULL ALERT AND ORIENTED. SLOW TO REPSOND BUT ANSWERS APPROPRIATLEY
--- NOTE | 2017-01-27 20:22 | NUR ---
SPOKE WITH PT'S DAUGHTER ABOUT STATUS OF PT ( RECEIVED CONSENT FROM PT TO DISCLOSE MED STATUS)
[2017-01-27 20:47] LABS: BILIRUBIN NEGATIVE (NEGATIVE); BLOOD NEGATIVE (NEGATIVE); CLARITY CLOUDY (CLEAR); COLOR YELLOW (YELLOW); GLUCOSE NEGATIVE (NEGATIVE); KETONE NEGATIVE (NEGATIVE); LEUKO ESTERASE NEGATIVE (NEGATIVE); NITRITE NEGATIVE (NEGATIVE); UROBILINOGEN 0.2 E.U./dl (0.2-1.0)
[2017-01-27 20:55] LABS: BACTERIA 3+
[2017-01-27 21:00] VITALS: BP 108/65
[2017-01-27 21:01] LABS: URINE AMPHETAMINES < 1000 (1000ng/ml); URINE BARBITURATES < 200 (200ng/ml); URINE BENZODIAZEPINES < 200 (200ng/ml); URINE CANNABINOIDS (THC) > 50 (50ng/ml); URINE COCAINE > 300 (300ng/ml); URINE METHADONE < 300 (300ng/ml); URINE OPIATES < 300 (300ng/ml)
[2017-01-27 21:03] LABS: URINE PHENCYCLIDINE < 25 (25ng/ml)
[2017-01-27 21:30] VITALS: BP 90/48
--- NOTE | 2017-01-27 21:30 | NUR ---
A 46, admitted to ICCU, under the services of LEATHA Evans DO with a diagnosis of OVERDOSE, SUICIDE ATTEMPT. Chief complaint is SUICIAL, TOOK UNKNOWN PILLS IN EXCESS. Patient arrived via stretcher from ER. Monitor applied. Initial assessment completed. Vital signs taken and recorded. LEATHA EVANS DO notified of admission to the unit. Orders received. See assessment for past medical history, medications and allergies. Patient and/or family oriented to unit. [facility] ICCU visitation policy reviewed. Clothing/patient valuable form completed. BENNIE MARIE
--- NOTE | 2017-01-27 22:00 | NUR ---
UNABLE TO VERIFY HOME MEDS PT IS LETHARGIC AND UNCOOPERATIVE.
[2017-01-28] VITALS: BP 106/62
[2017-01-28 04:00] VITALS: BP 102/63
[2017-01-28 04:45] LABS: BASO % 0.6 % (0.0-1.0); EOS # 0.1 10*3/uL (0.0-0.4); EOS % 1.9 % (1.0-4.0); HEMATOCRIT 35.9 % (37.0-47.0); HEMOGLOBIN 11.5 g/dl (12.0-16.0); LYMPH # 3.5 10*3/uL (1.3-4.4); LYMPH % 56.3 % (27.0-41.0); MEAN CELL VOLUME 93.7 fl (81.0-99.0); MEAN PLATELET VOLUME 10.5 fl (9.6-12.3); MONO # 0.5 10*3/uL (0.1-1.0); MONO % 7.5 % (3.0-9.0); NEUT # 2.1 10*3/uL (2.3-7.9); NEUT % 33.4 % (47.0-73.0); PLATELET COUNT AUTOMATED 227 10*3/uL (130-400); RED BLOOD COUNT 3.83 10*6/uL (4.10-5.10); RED CELL DISTRI WIDTH 15.9 % (0-14.5); WHITE BLOOD COUNT 6.2 10*3/uL (4.8-10.8)
--- NOTE | 2017-01-28 04:55 | NUR ---
PT CONTINUES TO REMAIN DROWSY....DOES OPEN EYES WHEN I CALL HER NAME, BUT TURNS HEAD TO THE SIDE, MUMBLES, AND RETURNS TO SLEEP. VSS. RESPIRATIONS UNCOMPROMISED.
[2017-01-28 04:58] LABS: BUN 9 mg/dl (7-24); CHLORIDE 109 mmol/L (98-107); CREATININE 0.79 mg/dL (0.55-1.02); SODIUM 140 mmol/L (136-145)
[2017-01-28 05:01] LABS: ACT PARTIAL THROMBO TIME 23.4 SECONDS (20.8-31.5)
[2017-01-28 05:04] LABS: CHOLESTEROL 200 mg/dL (<200); HDL CHOLESTEROL 43 mg/dl (40-60); LDL CHOLESTEROL 129 mg/dL (9-159); TRIGLYCERIDES 141 mg/dl (<150); VLDL CHOLESTEROL 28 mg/dL (6-40)
--- NOTE | 2017-01-28 05:40 | NUR ---
PT WAS INCONTINENT OF MODERATE AMT OF URINE. BATH/LINENS CHANGED. PT COOPERATED BY TURNING SIDE TO SIDE. THE ONLY THING SHE SAID WAS "YES" AND "NO" AND "THANK YOU". OTHERWISE, REMAINS WITHDRAWN.
[2017-01-28 06:38] LABS: VITAMIN D, 25-HYDROXY 28.4 ng/mL (30-100)
--- NOTE | 2017-01-28 06:41 | NUR ---
STAFF ATTEMPTING TO REACH DR JOAQUIN VIA HIS CELLPHONE.... NO CONTACT WITH HIM OF YET.
--- NOTE | 2017-01-28 06:43 | NUR ---
ATTEMPTED TO CALL ROLAND SINGH TO NOTIFY HER OF PT. SHE DOES NOT ANSWER THE PHONE, NOR DOES HER MAILBOX ALLOW TO LEAVE A MESSAGE.
--- NOTE | 2017-01-28 07:24 | NUR ---
Shift chart check completed.24 HR chart check completed. Sleeping easily at this time.
[2017-01-28 08:00] VITALS: BP 90/60; BP 92/61
--- NOTE | 2017-01-28 11:08 | NUR ---
DR HAWKINS IN TO VISIT. ONE LITER OF IV FLUID UP TO INFUSE OVER ONE HOUR PER ORDER. DR JOAQUIN HERE TO SEE PATIENT.
[2017-01-28 12:00] VITALS: BP 103/58
--- NOTE | 2017-01-28 12:13 | NUR ---
TECHNICAL ASSISTANT VS. PT STATES SHE HAS A PLACE TO STAY WHEN DC BUT NOT HER HOME. PROVIDED A LIST OF HOMELESS SHELTERS.
--- NOTE | 2017-01-28 13:38 | NUR ---
DR JOAQUIN SAW THE PATIENT. TRANSFERRED IN STABLE CONDITION VIA W/C TO [facility].
--- NOTE | 2017-01-28 13:46 | NUR ---
ROLAND SINGH NOTIFIED OF SUICIDE RISK SCORE.
[2017-01-28 16:00] VITALS: BP 115/81
[2017-01-28 20:00] VITALS: BP 111/59
[2017-01-29] VITALS: BP 123/77
[2017-01-29 08:00] VITALS: BP 126/56
--- NOTE | 2017-01-29 09:31 | NUR ---
PATIENT IS SLEEPING COMFORTABLY IN BED. CONTACT ISOLATION MRSA+ NARES. PATIENT WAS PLEASANT AND COOPERATIVE UPON ASSESSMENT AND DENIES ANY PAIN, DISCOMFORT, OR SOB. PATIENT STATES THAT THEY ARE FEELING TIRED AND DO NOT HAVE ANY APPETITE. WILL CONTINUE TO MONITOR PATIENT, CALL LIGHT SYSTEM REINFORCED AND CALL LIGHT WITHIN REACH. SEE SHIFT ASSESSMENT
[2017-01-29] MEDS ORDERED: B12,B-12,B 12500 MC1 PO (12:11)
[2017-01-29] MEDS ORDERED: NATURE'S BLEND F1 MG PO (12:11)
[2017-01-29] MEDS ORDERED: VITAMIN D32000 UNI1 PO (12:11)
--- NOTE | 2017-01-29 12:58 | NUR ---
MSDIS Discharge instructions reviewed with patient/family. Patient receptive and verbalizes understanding. Follow-up care arranged. Written instructions given to patient/family. DEEPA STEWARD
== END 2017-01-29 12:58 | disposition home or self-care (01) | DRG 918 ==
LOC: ED 18:45 → ICCU 19:38 → EDHOLD 19:38 → ICCU 20:25 → 4E 01-28 13:13
PROVIDERS: Emergency Medicine; Internal Medicine; ADMIT Internal Medicine
DX: T43.592A Poisoning by other antipsychotics and neuroleptics, intentional self-harm, initial encounter (principal); F11.20 Opioid dependence, uncomplicated; F84.9 Pervasive developmental disorder, unspecified; E83.41 Hypermagnesemia; E53.8 Deficiency of other specified B group vitamins; F32.9 Major depressive disorder, single episode, unspecified; F41.9 Anxiety disorder, unspecified; R73.9 Hyperglycemia, unspecified; B19.20 Unspecified viral hepatitis C without hepatic coma; E78.00 Pure hypercholesterolemia, unspecified; J44.9 Chronic obstructive pulmonary disease, unspecified; T14.91XA Suicide attempt, initial encounter; F14.10 Cocaine abuse, uncomplicated; T48.1X2A Poisoning by skeletal muscle relaxants [neuromuscular blocking agents], intentional self-harm, initial encounter; M51.36 Other intervertebral disc degeneration, lumbar region; G89.29 Other chronic pain; G43.909 Migraine, unspecified, not intractable, without status migrainosus; E66.9 Obesity, unspecified; R74.0 Nonspecific elevation of levels of transaminase and lactic acid dehydrogenase [LDH]; Z87.440 Personal history of urinary (tract) infections; Z98.51 Tubal ligation status; Z82.3 Family history of stroke; Z72.0 Tobacco use; Z91.018 Allergy to other foods; Z68.30 Body mass index [BMI] 30.0-30.9, adult; Z79.899 Other long term (current) drug therapy; Z86.711 Personal history of pulmonary embolism; Z83.6 Family history of other diseases of the respiratory system; Z80.9 Family history of malignant neoplasm, unspecified; Y92.89 Other specified places as the place of occurrence of the external cause

== ENCOUNTER 2017-02-23 18:39 | Emergency (ER) | payer OTHER ==
[~2017-02-23] VITALS: Ht 167.6 cm; Wt 83.9 kg
[~2017-02-23 18:39] MED LIST changes: +B12,B-12,B 12500 MC1 PO; +VITAMIN D32000 UNI1 PO
[2017-02-23] MEDS ORDERED: PROAIR HFA8.5 GM INH (20:17)
[2017-02-23] MEDS ORDERED: ZITHROMAX250 MG PO (20:17)
[2017-02-23] MEDS ORDERED: PREDNISONE10 MG PO (20:17)
[2017-02-23] MEDS ORDERED: TESSALON PERLE100 M1 PO (20:17)
== END 2017-02-23 20:29 | disposition home or self-care (01) ==
LOC: ED 18:39
DX: J40 Bronchitis, not specified as acute or chronic (principal); F17.210 Nicotine dependence, cigarettes, uncomplicated; Z98.51 Tubal ligation status; Z98.890 Other specified postprocedural states; Z79.899 Other long term (current) drug therapy; Z91.018 Allergy to other foods

== ENCOUNTER 2017-03-12 12:14 | Emergency (ER) | payer OTHER ==
[~2017-03-12] VITALS: Ht 167.6 cm; Wt 83.9 kg
--- NOTE | ~2017-03-12 | EKG ---
[place], [place] ELECTROCARDIOGRAM REPORT NAME: JAE GORDON UNIT #: [id number] ROOM: DOCTOR: PHOENIX MACIEL MD BIRTHDATE: [birth year] DOS: 03/12/2017 TIME: 1246 hours. Normal sinus rhythm at 78 beats per minute. Low voltage in precordial leads. No previous tracing is available in comparison. PHOENIX MACIEL MD CM:EKGRPT:ELECTROCARDIOGRAM REPORT 1624 31 PHOENIX MACIEL MD
[~2017-03-12 12:14] MED LIST changes: +PROAIR HFA8.5 GM INH; +TESSALON PERLE100 M1 PO
[2017-03-12 12:46] LABS: BASO % 0.6 % (0.0-1.0); EOS # 0.2 10*3/uL (0.0-0.4); EOS % 2.4 % (1.0-4.0); HEMATOCRIT 42.3 % (37.0-47.0); HEMOGLOBIN 13.8 g/dl (12.0-16.0); LYMPH # 2.9 10*3/uL (1.3-4.4); LYMPH % 42.1 % (27.0-41.0); MEAN CELL VOLUME 92.4 fl (81.0-99.0); MEAN CORPUSCULAR HGB 30.1 pg (27.0-31.0); MEAN CORPUSCULAR HGB CONC 32.6 g/dl (33.0-37.0); MEAN PLATELET VOLUME 9.9 fl (9.6-12.3); MONO # 0.6 10*3/uL (0.1-1.0); MONO % 8.4 % (3.0-9.0); NEUT # 3.1 10*3/uL (2.3-7.9); NEUT % 46.4 % (47.0-73.0); PLATELET COUNT AUTOMATED 246 10*3/uL (130-400); RED BLOOD COUNT 4.58 10*6/uL (4.10-5.10); RED CELL DISTRI WIDTH 14.9 % (0-14.5); WHITE BLOOD COUNT 6.8 10*3/uL (4.8-10.8)
[2017-03-12 13:02] LABS: ALBUMIN 3.7 gm/dl (3.1-4.5); ALKALINE PHOSPHATASE 91 U/L (45-117); BUN 11 mg/dl (7-24); CHLORIDE 106 mmol/L (98-107); POTASSIUM 4.6 mmol/L (3.5-5.1); SGOT/AST 15 IU/L (3-35); SGPT/ALT 17 U/L (12-78); SODIUM 141 mmol/L (136-145); TOTAL PROTEIN 7.9 gm/dL (6.4-8.2)
[2017-03-12 13:03] LABS: TROPONIN I < 0.015 ng/ml (<0.045)
[2017-03-12] MEDS ORDERED: VISTARIL25 MG PO (14:16)
== END 2017-03-12 14:28 | disposition home or self-care (01) ==
LOC: ED 12:14
PROVIDERS: Nurse Practitioner Family
DX: F41.1 Generalized anxiety disorder (principal); F43.0 Acute stress reaction; R03.0 Elevated blood-pressure reading, without diagnosis of hypertension; F17.210 Nicotine dependence, cigarettes, uncomplicated; F14.10 Cocaine abuse, uncomplicated; Z98.51 Tubal ligation status; Z79.899 Other long term (current) drug therapy; Z91.018 Allergy to other foods

== ENCOUNTER 2017-06-09 07:53 | Emergency (ER) | payer OTHER ==
[~2017-06-09] VITALS: Ht 165.1 cm; Wt 127.0 kg
[2017-06-09] MEDS ORDERED: GOOD NEIGHBOR150 MG PO (08:05)
[2017-06-09 08:26] LABS: BASO % 0.5 % (0.0-1.0); EOS # 0.2 10*3/uL (0.0-0.4); EOS % 3.4 % (1.0-4.0); HEMATOCRIT 37.3 % (37.0-47.0); HEMOGLOBIN 12.3 g/dl (12.0-16.0); LYMPH # 2.5 10*3/uL (1.3-4.4); LYMPH % 44.8 % (27.0-41.0); MEAN CELL VOLUME 93.5 fl (81.0-99.0); MEAN CORPUSCULAR HGB 30.8 pg (27.0-31.0); MEAN PLATELET VOLUME 10.1 fl (9.6-12.3); MONO # 0.5 10*3/uL (0.1-1.0); MONO % 9.8 % (3.0-9.0); NEUT # 2.3 10*3/uL (2.3-7.9); NEUT % 41.1 % (47.0-73.0); PLATELET COUNT AUTOMATED 269 10*3/uL (130-400); RED BLOOD COUNT 3.99 10*6/uL (4.10-5.10); RED CELL DISTRI WIDTH 14.2 % (0-14.5); WHITE BLOOD COUNT 5.5 10*3/uL (4.8-10.8)
[2017-06-09 08:42] LABS: ALBUMIN 3.5 gm/dl (3.1-4.5); ALKALINE PHOSPHATASE 72 U/L (45-117); BUN 7 mg/dl (7-24); CHLORIDE 107 mmol/L (98-107); POTASSIUM 4.1 mmol/L (3.5-5.1); SGOT/AST 15 IU/L (3-35); SGPT/ALT 16 U/L (12-78); SODIUM 139 mmol/L (136-145)
[2017-06-09 08:58] LABS: BILIRUBIN NEGATIVE (NEGATIVE); BLOOD 3+ (NEGATIVE); CLARITY CLOUDY (CLEAR); COLOR YELLOW (YELLOW); GLUCOSE NEGATIVE (NEGATIVE); KETONE TRACE (NEGATIVE); LEUKO ESTERASE TRACE (NEGATIVE); NITRITE NEGATIVE (NEGATIVE); PH 5.5 (5.0-9.0)
[2017-06-09 09:11] LABS: BACTERIA 1+; EPITHELIAL CELLS 15-20; RBC TNTC rbc/hpf (0-2); WBC 21-30 wbc/hpf (0-5)
[2017-06-09] MEDS ORDERED: LEVAQUIN250 M1 PO (09:48)
[2017-06-09] MEDS ORDERED: PYRIDIUM200 M1 PO (09:48)
== END 2017-06-09 10:12 | disposition home or self-care (01) ==
LOC: ED 07:53
PROVIDERS: Family Medicine
DX: N39.0 Urinary tract infection, site not specified (principal); G89.29 Other chronic pain; J44.9 Chronic obstructive pulmonary disease, unspecified; M51.36 Other intervertebral disc degeneration, lumbar region; G43.909 Migraine, unspecified, not intractable, without status migrainosus; E78.00 Pure hypercholesterolemia, unspecified; E66.9 Obesity, unspecified; F17.210 Nicotine dependence, cigarettes, uncomplicated; F11.10 Opioid abuse, uncomplicated; F14.10 Cocaine abuse, uncomplicated; Z98.51 Tubal ligation status; Z98.890 Other specified postprocedural states; Z68.34 Body mass index [BMI] 34.0-34.9, adult; Z79.899 Other long term (current) drug therapy; Z91.018 Allergy to other foods

== ENCOUNTER 2017-06-16 09:10 | Emergency (ER) | payer OTHER ==
[~2017-06-16] VITALS: Ht 165.1 cm; Wt 84.8 kg
[~2017-06-16 09:10] MED LIST changes: +GOOD NEIGHBOR150 MG PO; +LEVAQUIN250 M1 PO
[2017-06-16 09:30] LABS: BILIRUBIN NEGATIVE (NEGATIVE); BLOOD NEGATIVE (NEGATIVE); CLARITY CLEAR (CLEAR); COLOR YELLOW (YELLOW); GLUCOSE NEGATIVE (NEGATIVE); KETONE NEGATIVE (NEGATIVE); LEUKO ESTERASE NEGATIVE (NEGATIVE); NITRITE NEGATIVE (NEGATIVE); PH 5.5 (5.0-9.0); SPECIFIC GRAVITY <= 1.005 (1.005-1.030); UROBILINOGEN 0.2 E.U./dl (0.2-1.0)
[2017-06-16 09:44] LABS: BACTERIA TRACE; RBC 0-2 rbc/hpf (0-2); WBC 0-2 wbc/hpf (0-5)
[2017-06-16 10:13] LABS: BASO # 0.1 10*3/uL (0.0-0.1); BASO % 1.2 % (0.0-1.0); EOS # 0.5 10*3/uL (0.0-0.4); EOS % 9.9 % (1.0-4.0); HEMATOCRIT 37.5 % (37.0-47.0); LYMPH # 2.4 10*3/uL (1.3-4.4); LYMPH % 47.7 % (27.0-41.0); MEAN CELL VOLUME 94.5 fl (81.0-99.0); MEAN CORPUSCULAR HGB 30.2 pg (27.0-31.0); MONO # 0.6 10*3/uL (0.1-1.0); MONO % 10.8 % (3.0-9.0); NEUT # 1.5 10*3/uL (2.3-7.9); PLATELET COUNT AUTOMATED 244 10*3/uL (130-400); RED BLOOD COUNT 3.97 10*6/uL (4.10-5.10); RED CELL DISTRI WIDTH 13.9 % (0-14.5); WHITE BLOOD COUNT 5.1 10*3/uL (4.8-10.8)
[2017-06-16 10:27] LABS: ALBUMIN 3.5 gm/dl (3.1-4.5); ALKALINE PHOSPHATASE 75 U/L (45-117); BUN 7 mg/dl (7-24); CHLORIDE 108 mmol/L (98-107); CREATININE 0.87 mg/dL (0.55-1.02); POTASSIUM 4.3 mmol/L (3.5-5.1); SGOT/AST 18 IU/L (3-35); SGPT/ALT 17 U/L (12-78); SODIUM 141 mmol/L (136-145)
== END 2017-06-16 11:20 | disposition left against medical advice (07) ==
LOC: ED 09:10
PROVIDERS: Emergency Medicine
DX: R10.32 Left lower quadrant pain (principal); F17.210 Nicotine dependence, cigarettes, uncomplicated; F11.10 Opioid abuse, uncomplicated; J44.9 Chronic obstructive pulmonary disease, unspecified; G89.29 Other chronic pain; M51.36 Other intervertebral disc degeneration, lumbar region; F14.10 Cocaine abuse, uncomplicated; E78.00 Pure hypercholesterolemia, unspecified; G43.909 Migraine, unspecified, not intractable, without status migrainosus; E66.9 Obesity, unspecified; Z98.51 Tubal ligation status; Z98.890 Other specified postprocedural states; Z68.34 Body mass index [BMI] 34.0-34.9, adult; Z79.899 Other long term (current) drug therapy; Z91.018 Allergy to other foods; Z86.718 Personal history of other venous thrombosis and embolism; Z53.21 Procedure and treatment not carried out due to patient leaving prior to being seen by health care provider

== ENCOUNTER → 2017-06-21 | Outpatient (CLI) | payer OTHER ==
[2017-06-21 12:53] LABS: ALBUMIN 3.7 gm/dl (3.1-4.5); BILIRUBIN, DIRECT 0.1 mg/dL (0.0-0.2); TOTAL PROTEIN 7.3 gm/dL (6.4-8.2)
[2017-06-22 21:03] LABS: HEPATITIS C QNT HCV Not Detected IU/mL (.)
== END | disposition home or self-care (01) ==
LOC: LAB 10:47 → US 11:00
PROVIDERS: Internal Medicine Gastroenterology
DX: B18.2 Chronic viral hepatitis C (principal); N28.1 Cyst of kidney, acquired

== ENCOUNTER 2017-06-25 18:38 | Emergency (ER) | payer OTHER ==
[~2017-06-25] VITALS: Ht 167.6 cm; Wt 83.0 kg
== END 2017-06-25 20:18 | disposition home or self-care (01) ==
LOC: ED 18:38
DX: M54.5 Low back pain (principal); F17.210 Nicotine dependence, cigarettes, uncomplicated; F11.10 Opioid abuse, uncomplicated; G43.909 Migraine, unspecified, not intractable, without status migrainosus; E78.00 Pure hypercholesterolemia, unspecified; E66.9 Obesity, unspecified; J44.9 Chronic obstructive pulmonary disease, unspecified; M51.36 Other intervertebral disc degeneration, lumbar region; G89.29 Other chronic pain; Z79.899 Other long term (current) drug therapy; Z68.34 Body mass index [BMI] 34.0-34.9, adult; Z98.51 Tubal ligation status

== ENCOUNTER 2017-07-10 21:48 | Emergency (ER) | payer OTHER ==
[~2017-07-10] VITALS: Ht 167.6 cm; Wt 86.2 kg
[~2017-07-10 21:48] MED LIST changes: +ABILIFY10 MG PO; +ASPIRIN81 M1 PO; +LEVOFLOXACIN250 M2 PO; +SUBOXONE 2 MG-1 EACH PO
[2017-07-10 22:44] LABS: BASO % 0.1 % (0.0-1.0); HEMATOCRIT 33.3 % (37.0-47.0); HEMOGLOBIN 10.8 g/dl (12.0-16.0); LYMPH # 2.2 10*3/uL (1.3-4.4); LYMPH % 26.7 % (27.0-41.0); MEAN CORPUSCULAR HGB 30.2 pg (27.0-31.0); MEAN CORPUSCULAR HGB CONC 32.4 g/dl (33.0-37.0); MEAN PLATELET VOLUME 9.6 fl (9.6-12.3); MONO # 0.7 10*3/uL (0.1-1.0); MONO % 8.5 % (3.0-9.0); NEUT # 5.3 10*3/uL (2.3-7.9); NEUT % 63.6 % (47.0-73.0); PLATELET COUNT AUTOMATED 250 10*3/uL (130-400); RED BLOOD COUNT 3.58 10*6/uL (4.10-5.10); RED CELL DISTRI WIDTH 14.6 % (0-14.5); WHITE BLOOD COUNT 8.4 10*3/uL (4.8-10.8)
[2017-07-10 23:01] LABS: ALBUMIN 3.2 gm/dl (3.1-4.5); ALKALINE PHOSPHATASE 63 U/L (45-117); BUN 10 mg/dl (7-24); CHLORIDE 106 mmol/L (98-107); CREATININE 0.77 mg/dL (0.55-1.02); POTASSIUM 3.3 mmol/L (3.5-5.1); SGOT/AST 55 IU/L (3-35); SGPT/ALT 47 U/L (12-78); SODIUM 140 mmol/L (136-145); TOTAL PROTEIN 6.8 gm/dL (6.4-8.2)
[2017-07-10 23:05] LABS: BETA-HCG, QUANT < 1.0 mIU/mL (1-3); TROPONIN I < 0.015 ng/ml (<0.045)
[2017-07-13] MEDS ORDERED: FLUCONAZOLE100 MG PO (11:24)
== END 2017-07-11 00:49 | disposition home or self-care (01) ==
LOC: ED 21:48
PROVIDERS: Student in an Organized Health Care Education/Training Program
DX: J44.1 Chronic obstructive pulmonary disease with (acute) exacerbation (principal); F41.9 Anxiety disorder, unspecified; G89.29 Other chronic pain; F32.9 Major depressive disorder, single episode, unspecified; E78.00 Pure hypercholesterolemia, unspecified; R73.9 Hyperglycemia, unspecified; F17.210 Nicotine dependence, cigarettes, uncomplicated; G43.909 Migraine, unspecified, not intractable, without status migrainosus; Z91.018 Allergy to other foods; Z79.899 Other long term (current) drug therapy; Z68.34 Body mass index [BMI] 34.0-34.9, adult; Z98.51 Tubal ligation status

== ENCOUNTER → 2017-07-13 | Day surgery (SDC) | payer OTHER ==
[~2017-07-13] VITALS: Ht 167.6 cm; Wt 86.2 kg
[~2017-07-13] MED LIST changes: +FLUCONAZOLE100 MG PO
--- NOTE | ~2017-07-13 | O ---
[place], [place] OPERATIVE NOTE NAME: JAE GORDON [facility] #: [id number] UNIT #: [id number] ROOM: DOCTOR: TRINY MARLEY [facility] BIRTHDATE: [birth year] DOS: 07/13/2017 GASTROENDOSCOPIC REPORT INDIATIONS: A 46-year-old patient who presented with chief complaint of dyspepsia, hoarseness of the voice, esophageal distress, and substernal pain. The patient with a narcotic history in past, heroin dependency, and on [facility]ox[facility] Clinic for past year. ALLERGIES: COCONUT. FAMILY HISTORY: Noncontributory. PAST SURGICAL HISTORY: Tubal ligation. PAST MEDICAL HISTORY: Seizure disorder, anxiety, and dyspepsia. SOCIAL HISTORY: Three pack smoker, that has reduced her smoking to 2 packs recently. Alcohol consumer, 6 pack of beer a minimum, tequila drinks and she has reduced that since last month. She has hepatitis C history. PROCEDURE: Today's procedure part of investigation is panendoscopy plus biopsy. PREMEDICATION: Versed and Diprivan. SCOPE: Olympus forward-viewing gastroscope Q10 video. REPORT: After putting the patient in left lateral position and application of lubricant to the scope, the scope was introduced. Thereafter, under direct visualization, I advanced through the length of esophagus without difficulty. Evidence of [id number] esophageal moniliasis was noticed. Small hiatal hernia seen. Gastric pouch was entered. Gastritis noticed. Stool biopsy from antrum was obtained for H. pylori. Duodenal bulb, second and third part within normal limit. Esophageal moniliasis brushed for fungal study. The patient extubated, tolerated procedure well. IMPRESSION: Esophageal moniliasis, hiatal hernia, and gastritis. PLAN AND DISCUSSION: I am going to provide her a prescription for Diflucan 100 mg 1 tablet a day for one week and we enforcing the idea of avoiding alcohol and three pack cigarette smoking per day. We are going to continue with omeprazole 40 mg daily. She is going to need an ENT followup. Since I noticed upon withdrawal of the scope that she may have a vocal cord polyp and severe edema of the vocal cords. Understanding that she is on prednisone, but she still needs reassessment with the ENT services. I thank you very much indeed for your kind referral. [place], [place] OPERATIVE NOTE NAME: JAE GORDON UNIT #: [id number] ROOM: DOCTOR: DONELL TRIPATHI,MATT BIRTHDATE: [birth year] MATT MARLEY MD CM:OPRECORD:OPERATIVE NOTE [id number] MATT MARLEY MD 07/13/17 1236 interface
[2017-07-13 10:08] VITALS: BP 108/65
[2017-07-13 10:49] VITALS: BP 101/53
[2017-07-13 11:04] VITALS: BP 128/50
[2017-07-13 11:19] VITALS: BP 122/53
== END | disposition home or self-care (01) ==
LOC: SDC 07-08 09:30
DX: K29.50 Unspecified chronic gastritis without bleeding (principal); B37.81 Candidal esophagitis; K44.9 Diaphragmatic hernia without obstruction or gangrene; Z98.51 Tubal ligation status; F41.9 Anxiety disorder, unspecified; G40.909 Epilepsy, unspecified, not intractable, without status epilepticus; B18.2 Chronic viral hepatitis C; F17.210 Nicotine dependence, cigarettes, uncomplicated; I10 Essential (primary) hypertension; Z86.73 Personal history of transient ischemic attack (TIA), and cerebral infarction without residual deficits; J44.9 Chronic obstructive pulmonary disease, unspecified; K21.9 Gastro-esophageal reflux disease without esophagitis; F32.9 Major depressive disorder, single episode, unspecified; Z79.899 Other long term (current) drug therapy

== ENCOUNTER 2017-08-12 19:16 | Emergency (ER) | payer OTHER ==
[~2017-08-12] VITALS: Ht 175.2 cm; Wt 83.0 kg
[2017-08-12 19:57] LABS: HEMATOCRIT 37.6 % (37.0-47.0); HEMOGLOBIN 11.9 g/dl (12.0-16.0); MEAN CELL VOLUME 91.5 fl (81.0-99.0); MEAN CORPUSCULAR HGB CONC 31.6 g/dl (33.0-37.0); MEAN PLATELET VOLUME 10.1 fl (9.6-12.3); PLATELET COUNT AUTOMATED 305 10*3/uL (130-400); RED BLOOD COUNT 4.11 10*6/uL (4.10-5.10); WHITE BLOOD COUNT 7.2 10*3/uL (4.8-10.8)
[2017-08-12 20:11] LABS: ALBUMIN 3.8 gm/dl (3.1-4.5); ALKALINE PHOSPHATASE 79 U/L (45-117); BUN 11 mg/dl (7-24); CHLORIDE 110 mmol/L (98-107); CREATININE 0.99 mg/dL (0.55-1.02); POTASSIUM 3.9 mmol/L (3.5-5.1); SGOT/AST 12 IU/L (3-35); SGPT/ALT 16 U/L (12-78); SODIUM 142 mmol/L (136-145); TOTAL PROTEIN 7.8 gm/dL (6.4-8.2)
[2017-08-12 20:17] LABS: ATYPICAL LYMPHS 3 % (0-0); PLATELET SUFFICIENCY NORMAL (NORMAL); TOTAL CELLS COUNTED 100 #CELLS
== END 2017-08-12 20:28 | disposition left against medical advice (07) ==
LOC: ED 19:16
PROVIDERS: Physician Assistant
DX: J02.9 Acute pharyngitis, unspecified (principal); R13.10 Dysphagia, unspecified; F17.210 Nicotine dependence, cigarettes, uncomplicated; F11.10 Opioid abuse, uncomplicated; F14.10 Cocaine abuse, uncomplicated; Z98.51 Tubal ligation status; Z98.890 Other specified postprocedural states; Z79.82 Long term (current) use of aspirin; Z79.899 Other long term (current) drug therapy; Z91.018 Allergy to other foods

== ENCOUNTER 2017-08-24 16:37 | Emergency (ER) | payer OTHER ==
[~2017-08-24] VITALS: Wt 81.6 kg
[2017-08-24] MEDS ORDERED: PREDNISONE20 M1 PO (17:11)
[2017-08-24] MEDS ORDERED: AUGMENTIN 875875 MG PO (17:11)
== END 2017-08-24 17:33 | disposition home or self-care (01) ==
LOC: ED 16:37
DX: T78.40XA Allergy, unspecified, initial encounter (principal); F17.210 Nicotine dependence, cigarettes, uncomplicated; F11.10 Opioid abuse, uncomplicated; F14.10 Cocaine abuse, uncomplicated; Z98.51 Tubal ligation status; Z98.890 Other specified postprocedural states; Z79.899 Other long term (current) drug therapy; Z79.82 Long term (current) use of aspirin; Z91.018 Allergy to other foods; Y92.9 Unspecified place or not applicable

== ENCOUNTER 2017-09-27 10:02 | Emergency (ER) | payer OTHER ==
[~2017-09-27] VITALS: Ht 167.6 cm; Wt 81.6 kg
[~2017-09-27 10:02] MED LIST changes: +PREDNISONE20 M1 PO
[2017-09-27] MEDS ORDERED: ZOFRAN ODT4 MG SL (11:11)
[2017-09-27] MEDS ORDERED: MEDROL DOSEPAK4 MG PO (11:50)
[2017-09-27] MEDS ORDERED: CYCLOBENZAPRINE10 MG PO (11:50)
== END 2017-09-27 11:53 | disposition home or self-care (01) ==
LOC: ED 10:02
DX: S39.012A Strain of muscle, fascia and tendon of lower back, initial encounter (principal); M25.561 Pain in right knee; G62.9 Polyneuropathy, unspecified; F17.210 Nicotine dependence, cigarettes, uncomplicated; Z91.018 Allergy to other foods; Z79.899 Other long term (current) drug therapy; Z79.82 Long term (current) use of aspirin; X58.XXXA Exposure to other specified factors, initial encounter; Y93.89 Activity, other specified; Y92.89 Other specified places as the place of occurrence of the external cause; Y99.8 Other external cause status

== ENCOUNTER 2017-11-07 16:36 | Emergency (ER) | payer OTHER ==
[~2017-11-07] VITALS: Ht 165.1 cm; Wt 80.7 kg
--- NOTE | ~2017-11-07 | EKG ---
[place], [place] ELECTROCARDIOGRAM REPORT NAME: JAE GORDON UNIT #: [id number] ROOM: DOCTOR: EPIPHANY DRAFT REPORT BIRTHDATE: [birth year] [facility] Test Date: 2017-11-07 Test Time: 16:41:26 Pat Name: JAE GORDON Department: Room: Gender: F Financial Services Sales Representative: : 1970 Requested By: KARYN ROLAND Order Number: [id number] Reading MD: Que Wright MD Measurements Intervals [place] Rate: 87 P: 79 OR: 140 QRS: 82 QRSD: 113 T: 71 QT: 391 QTc: 471 Interpretive Statements Sinus rhythm Borderline intraventricular conduction delay Low voltage, extremity and precordial leads Electronically Signed On 11-08-2017 9:41:47 PDT by Que Wright MD CM:EKGRPT:ELECTROCARDIOGRAM REPORT 1641 [id number] KARYN JARA DRAFT REPORT KARYN ROLAND M.D.
[2017-11-07 17:07] LABS: BASO % 0.5 % (0.0-1.0); EOS # 0.1 10*3/uL (0.0-0.4); EOS % 2.3 % (1.0-4.0); HEMATOCRIT 38.1 % (37.0-47.0); HEMOGLOBIN 12.4 g/dl (12.0-16.0); LYMPH # 2.6 10*3/uL (1.3-4.4); LYMPH % 46.1 % (27.0-41.0); MEAN CELL VOLUME 91.1 fl (81.0-99.0); MEAN CORPUSCULAR HGB 29.7 pg (27.0-31.0); MEAN CORPUSCULAR HGB CONC 32.5 g/dl (33.0-37.0); MONO # 0.5 10*3/uL (0.1-1.0); MONO % 9.3 % (3.0-9.0); NEUT # 2.4 10*3/uL (2.3-7.9); NEUT % 41.6 % (47.0-73.0); PLATELET COUNT AUTOMATED 232 10*3/uL (130-400); RED BLOOD COUNT 4.18 10*6/uL (4.10-5.10); RED CELL DISTRI WIDTH 15.4 % (0-14.5); WHITE BLOOD COUNT 5.7 10*3/uL (4.8-10.8)
[2017-11-07 17:29] LABS: ALBUMIN 3.7 gm/dl (3.1-4.5); ALKALINE PHOSPHATASE 85 U/L (45-117); BUN 8 mg/dl (7-24); CHLORIDE 108 mmol/L (98-107); CREATININE 0.85 mg/dL (0.55-1.02); SGOT/AST 46 IU/L (3-35); SGPT/ALT 62 U/L (12-78); SODIUM 141 mmol/L (136-145); TOTAL PROTEIN 7.4 gm/dL (6.4-8.2); TROPONIN I < 0.015 ng/ml (<0.045)
== END 2017-11-07 18:31 | disposition left against medical advice (07) ==
LOC: ED 16:36
PROVIDERS: Emergency Medicine
DX: R07.9 Chest pain, unspecified (principal); M25.511 Pain in right shoulder; R11.0 Nausea; I10 Essential (primary) hypertension; J45.909 Unspecified asthma, uncomplicated; G89.29 Other chronic pain; J44.9 Chronic obstructive pulmonary disease, unspecified; E78.00 Pure hypercholesterolemia, unspecified; G43.909 Migraine, unspecified, not intractable, without status migrainosus; E66.9 Obesity, unspecified; F17.210 Nicotine dependence, cigarettes, uncomplicated; Z68.30 Body mass index [BMI] 30.0-30.9, adult; Z98.51 Tubal ligation status; Z91.018 Allergy to other foods; Z79.899 Other long term (current) drug therapy

== ENCOUNTER → 2018-03-23 | Outpatient (CLI) | payer OTHER ==
[2018-03-23 09:34] LABS: BASO % 0.4 % (0.0-1.0); EOS # 0.4 10*3/uL (0.0-0.4); EOS % 3.9 % (1.0-4.0); HEMATOCRIT 43.3 % (37.0-47.0); HEMOGLOBIN 13.7 g/dl (12.0-16.0); LYMPH # 2.5 10*3/uL (1.3-4.4); LYMPH % 26.3 % (27.0-41.0); MEAN CORPUSCULAR HGB CONC 31.6 g/dl (33.0-37.0); MEAN PLATELET VOLUME 10.4 fl (9.6-12.3); MONO # 0.7 10*3/uL (0.1-1.0); MONO % 7.6 % (3.0-9.0); NEUT # 5.7 10*3/uL (2.3-7.9); NEUT % 61.1 % (47.0-73.0); PLATELET COUNT AUTOMATED 292 10*3/uL (130-400); RED BLOOD COUNT 4.56 10*6/uL (4.10-5.10); RED CELL DISTRI WIDTH 14.6 % (0-14.5); WHITE BLOOD COUNT 9.4 10*3/uL (4.8-10.8)
[2018-03-23 10:00] LABS: ALBUMIN 3.6 gm/dl (3.1-4.5); ALKALINE PHOSPHATASE 82 U/L (45-117); BUN 10 mg/dl (7-24); CHLORIDE 105 mmol/L (98-107); CHOLESTEROL 226 mg/dL (<200); CREATININE 0.94 mg/dL (0.55-1.02); HDL CHOLESTEROL 53 mg/dl (40-60); LDL CHOLESTEROL 104 mg/dL (9-159); POTASSIUM 3.7 mmol/L (3.5-5.1); SGOT/AST 12 IU/L (3-35); SGPT/ALT 17 U/L (12-78); SODIUM 138 mmol/L (136-145); TOTAL PROTEIN 7.5 gm/dL (6.4-8.2); TRIGLYCERIDES 344 mg/dl (<150); VLDL CHOLESTEROL 69 mg/dL (6-40)
[2018-03-24 12:08] LABS: HEPATITIS B SURFACE AG Negative (Negative)
[2018-03-27 09:14] LABS: HEPATITIS C VIRUS ANTIBODY >11.0 s/co (0.0-0.9)
== END | disposition home or self-care (01) ==
LOC: LAB 08:54
PROVIDERS: Family Medicine
DX: K21.9 Gastro-esophageal reflux disease without esophagitis (principal); F32.2 Major depressive disorder, single episode, severe without psychotic features; B19.20 Unspecified viral hepatitis C without hepatic coma; Z79.899 Other long term (current) drug therapy

== ENCOUNTER 2018-05-18 10:01 | Emergency (ER) | payer OTHER ==
[~2018-05-18] VITALS: Ht 165.1 cm; Wt 82.6 kg
--- NOTE | ~2018-05-18 | EKG ---
[place], [place] ELECTROCARDIOGRAM REPORT NAME: JAE GORDON UNIT #: [id number] ROOM: DOCTOR: EPIPHANY DRAFT REPORT BIRTHDATE: [address] [facility] Test Date: 2018-05-18 Test Time: 10:04:28 Pat Name: JAE GORDON Department: Room: Gender: F Interlocking Pavement Installer: Rose Hernandez : 1970 Requested By: CHALO PARTIDA Order Number: [id number] Reading MD: Frank Wallace MD Measurements Intervals [place] Rate: 77 P: 65 [place]: 138 QRS: 79 QRSD: 96 T: 62 QT: 395 QTc: 448 Interpretive Statements Sinus rhythm Low voltage, precordial leads Compared to ECG 11/07/2017 16:41:26 No significant changes Electronically Signed On 05-18-2018 11:27:14 PST by Frank Wallace MD CM:EKGRPT:ELECTROCARDIOGRAM REPORT 1004 1127 CHALO JARA DRAFT REPORT CHALO PARTIDA MD
[2018-05-18 10:26] LABS: BASO % 0.4 % (0.0-1.0); EOS # 0.3 10*3/uL (0.0-0.4); EOS % 4.7 % (1.0-4.0); HEMATOCRIT 37.6 % (37.0-47.0); HEMOGLOBIN 11.8 g/dl (12.0-16.0); LYMPH # 1.9 10*3/uL (1.3-4.4); LYMPH % 34.3 % (27.0-41.0); MEAN CELL VOLUME 95.4 fl (81.0-99.0); MEAN CORPUSCULAR HGB 29.9 pg (27.0-31.0); MEAN CORPUSCULAR HGB CONC 31.4 g/dl (33.0-37.0); MEAN PLATELET VOLUME 10.5 fl (9.6-12.3); MONO # 0.6 10*3/uL (0.1-1.0); MONO % 10.6 % (3.0-9.0); NEUT # 2.8 10*3/uL (2.3-7.9); NEUT % 49.6 % (47.0-73.0); PLATELET COUNT AUTOMATED 255 10*3/uL (130-400); RED BLOOD COUNT 3.94 10*6/uL (4.10-5.10); RED CELL DISTRI WIDTH 15.5 % (0-14.5); WHITE BLOOD COUNT 5.6 10*3/uL (4.8-10.8)
[2018-05-18 10:40] LABS: ACT PARTIAL THROMBO TIME 24.3 SECONDS (20.8-31.5)
[2018-05-18 10:43] LABS: ALBUMIN 3.3 gm/dl (3.1-4.5); ALKALINE PHOSPHATASE 71 U/L (45-117); BUN 6 mg/dl (7-24); CHLORIDE 110 mmol/L (98-107); CREATININE 0.77 mg/dL (0.55-1.02); POTASSIUM 3.7 mmol/L (3.5-5.1); SGOT/AST 16 IU/L (3-35); SGPT/ALT 16 U/L (12-78); SODIUM 141 mmol/L (136-145); TOTAL PROTEIN 7.4 gm/dL (6.4-8.2)
[2018-05-18 10:47] LABS: TROPONIN I < 0.015 ng/ml (<0.045)
== END 2018-05-18 12:18 | disposition left against medical advice (07) ==
LOC: ED 10:01
PROVIDERS: Emergency Medicine
DX: R07.9 Chest pain, unspecified (principal); R55 Syncope and collapse; R06.02 Shortness of breath; R51 Headache; M54.2 Cervicalgia; F17.210 Nicotine dependence, cigarettes, uncomplicated; Z91.018 Allergy to other foods; Z79.899 Other long term (current) drug therapy

== ENCOUNTER 2018-10-16 12:18 | Emergency (ER) | payer OTHER ==
[~2018-10-16] VITALS: Ht 165.1 cm; Wt 83.0 kg
--- NOTE | ~2018-10-16 | EKG ---
[place], [place] ELECTROCARDIOGRAM REPORT NAME: JAE GORDON UNIT #: [id number] ROOM: DOCTOR: EPIPHANY DRAFT REPORT BIRTHDATE: [birth year] [facility] Test Date: 2018-10-16 Test Time: 12:23:08 Pat Name: JAE GORDON Department: Room: Gender: F Financial Quantitative Analyst: : 1970 Requested By: KARYN ROLAND Order Number: [id number] Reading MD: Junito Winters MD Measurements Intervals [place] Rate: 102 P: 66 ID: 132 QRS: 76 QRSD: 86 T: 62 QT: 340 QTc: 443 Interpretive Statements Sinus tachycardia Low voltage, precordial leads Baseline wander in lead(s) V1,V3,V4,V5 Compared to ECG 10/01/2018 23:37:23 Sinus rhythm no longer present Electronically Signed On 10-17-2018 10:27:45 PDT by Junito Winters MD CM:EKGRPT:ELECTROCARDIOGRAM REPORT 1223 1027 KARYN JARA DRAFT REPORT KARYN ROLAND M.D.
--- NOTE | ~2018-10-16 | EKG ---
[place], [place] ELECTROCARDIOGRAM REPORT NAME: JAE GORDON UNIT #: [id number] ROOM: DOCTOR: EPIPHANY DRAFT REPORT BIRTHDATE: [birth year] [facility] [place] [facility] Test Date: 2018-10-16 Test Time: 13:15:57 Pat Name: JAE GORDON Department: Room: Gender: F Lumber Loader: EVELYN : 1970 Requested By: KARYN ROLAND Order Number: [id number] Reading MD: Junito Winters MD Measurements Intervals [place] Rate: 83 P: 61 ND: 136 QRS: 69 QRSD: 86 T: 58 QT: 363 QTc: 427 Interpretive Statements Sinus rhythm Borderline low voltage, extremity leads Baseline wander in lead(s) I,III,aVL Compared to ECG 10/01/2018 23:37:23 No significant changes Electronically Signed On 10-17-2018 10:28:03 PDT by Junito Winters MD CM:EKGRPT:ELECTROCARDIOGRAM REPORT 1315 1028 KARYN JARA DRAFT REPORT KARYN ROLAND M.D.
[~2018-10-16 12:18] MED LIST changes: +ACULAR 0.5%3 ML OPH; +ESTRADIOL0.5 MG PO; +LIPITOR10 MG PO; +MEDROXYPROGEST2.5 MG PO; +NICODERM CQ1 EAC2 T; +PROVENTIL HFA6.7 GM INH; +Tobrex Ophth S2.5 ML OPH
[2018-10-16 12:44] LABS: BASO % 0.6 % (0.0-1.0); EOS # 0.1 10*3/uL (0.0-0.4); EOS % 1.8 % (1.0-4.0); HEMATOCRIT 39.2 % (37.0-47.0); HEMOGLOBIN 12.9 g/dl (12.0-16.0); LYMPH # 1.9 10*3/uL (1.3-4.4); LYMPH % 36.1 % (27.0-41.0); MEAN CELL VOLUME 94.7 fl (81.0-99.0); MEAN CORPUSCULAR HGB 31.2 pg (27.0-31.0); MEAN CORPUSCULAR HGB CONC 32.9 g/dl (33.0-37.0); MEAN PLATELET VOLUME 9.6 fl (9.6-12.3); MONO # 0.5 10*3/uL (0.1-1.0); MONO % 10.5 % (3.0-9.0); NEUT # 2.6 10*3/uL (2.3-7.9); NEUT % 50.4 % (47.0-73.0); PLATELET COUNT AUTOMATED 247 10*3/uL (130-400); RED BLOOD COUNT 4.14 10*6/uL (4.10-5.10); RED CELL DISTRI WIDTH 16.1 % (0-14.5); WHITE BLOOD COUNT 5.1 10*3/uL (4.8-10.8)
[2018-10-16 12:58] LABS: ACT PARTIAL THROMBO TIME 23.5 SECONDS (20.0-32.1); INTERNATIONAL NORM RATIO 0.9 (2.0-3.5)
[2018-10-16 13:18] LABS: ALBUMIN 3.4 gm/dl (3.1-4.5); ALKALINE PHOSPHATASE 90 U/L (45-117); BUN 6 mg/dl (7-24); CHLORIDE 108 mmol/L (98-107); CREATININE 0.85 mg/dL (0.55-1.02); POTASSIUM 4.1 mmol/L (3.5-5.1); SGOT/AST 26 IU/L (3-35); SGPT/ALT 31 U/L (12-78); SODIUM 141 mmol/L (136-145); TOTAL PROTEIN 7.5 gm/dL (6.4-8.2)
[2018-10-16 13:23] LABS: TROPONIN I < 0.015 ng/ml (<0.045)
[2018-10-16] MEDS ORDERED: PREDNISONE20 M1 PO (14:49)
[2018-11-05] MEDS ORDERED: ATIVAN1 MG PO (14:28)
[2018-11-05] MEDS ORDERED: PREDNISONE20 M1 PO (14:28)
== END 2018-10-16 14:49 ==
LOC: ED 12:18
PROVIDERS: Emergency Medicine
DX: J02.9 Acute pharyngitis, unspecified (principal); F41.9 Anxiety disorder, unspecified; J38.3 Other diseases of vocal cords; R22.1 Localized swelling, mass and lump, neck; J44.9 Chronic obstructive pulmonary disease, unspecified; F31.9 Bipolar disorder, unspecified; F11.11 Opioid abuse, in remission; F14.11 Cocaine abuse, in remission; F17.210 Nicotine dependence, cigarettes, uncomplicated; Z91.018 Allergy to other foods; Z79.899 Other long term (current) drug therapy

== ENCOUNTER 2019-01-06 14:06 | Emergency (ER) | payer OTHER ==
[~2019-01-06] VITALS: Ht 165.1 cm; Wt 83.5 kg
== END 2019-01-06 15:30 | disposition home or self-care (01) ==
LOC: ED 14:06
DX: S40.012A Contusion of left shoulder, initial encounter (principal); K21.9 Gastro-esophageal reflux disease without esophagitis; I10 Essential (primary) hypertension; J45.909 Unspecified asthma, uncomplicated; F17.210 Nicotine dependence, cigarettes, uncomplicated; Z91.018 Allergy to other foods; Z79.899 Other long term (current) drug therapy; Z86.73 Personal history of transient ischemic attack (TIA), and cerebral infarction without residual deficits; W01.198A Fall on same level from slipping, tripping and stumbling with subsequent striking against other object, initial encounter; Y93.01 Activity, walking, marching and hiking; Y92.89 Other specified places as the place of occurrence of the external cause; Y99.8 Other external cause status

== ENCOUNTER → 2019-01-30 | Outpatient (CLI) | payer OTHER ==
[2019-01-30 09:49] LABS: HEMATOCRIT 41.8 % (37.0-47.0); HEMOGLOBIN 13.5 g/dl (12.0-16.0); MEAN CELL VOLUME 100.5 fl (81.0-99.0); MEAN CORPUSCULAR HGB 32.5 pg (27.0-31.0); MEAN CORPUSCULAR HGB CONC 32.3 g/dl (33.0-37.0); MEAN PLATELET VOLUME 10.2 fl (9.6-12.3); RED BLOOD COUNT 4.16 10*6/uL (4.10-5.10); RED CELL DISTRI WIDTH 17.8 % (0-14.5); WHITE BLOOD COUNT 5.7 10*3/uL (4.8-10.8)
[2019-01-30 10:22] LABS: ALBUMIN 3.4 gm/dl (3.1-4.5); ALKALINE PHOSPHATASE 136 U/L (45-117); BUN 6 mg/dl (7-24); CHLORIDE 105 mmol/L (98-107); CHOLESTEROL 169 mg/dL (<200); HDL CHOLESTEROL 47 mg/dl (40-60); IRON 202 ug/dL (50-170); LDL CHOLESTEROL 99 mg/dL (9-159); POTASSIUM 3.3 mmol/L (3.5-5.1); SGOT/AST 74 IU/L (3-35); SGPT/ALT 55 U/L (12-78); SODIUM 137 mmol/L (136-145); TOTAL PROTEIN 7.7 gm/dL (6.4-8.2); TRIGLYCERIDES 116 mg/dl (<150); VLDL CHOLESTEROL 23 mg/dL (6-40)
[2019-01-30 11:31] LABS: VITAMIN D, 25-HYDROXY 23.3 ng/mL (30-100)
== END | disposition home or self-care (01) ==
LOC: LAB 09:20
PROVIDERS: Registered Nurse Flight
DX: R00.0 Tachycardia, unspecified (principal); F10.10 Alcohol abuse, uncomplicated; F33.1 Major depressive disorder, recurrent, moderate; B18.2 Chronic viral hepatitis C; E78.00 Pure hypercholesterolemia, unspecified

== ENCOUNTER 2019-02-18 18:23 | Emergency (ER) | payer OTHER ==
[~2019-02-18] VITALS: Ht 165.1 cm; Wt 86.2 kg
== END 2019-02-18 20:29 | disposition home or self-care (01) ==
LOC: ED 18:23
DX: S09.90XA Unspecified injury of head, initial encounter (principal); R11.10 Vomiting, unspecified; M54.5 Low back pain; M54.2 Cervicalgia; F17.210 Nicotine dependence, cigarettes, uncomplicated; Z91.018 Allergy to other foods; Z79.899 Other long term (current) drug therapy; W10.8XXA Fall (on) (from) other stairs and steps, initial encounter; Y93.89 Activity, other specified; Y92.098 Other place in other non-institutional residence as the place of occurrence of the external cause; Y99.8 Other external cause status

== ENCOUNTER 2019-04-02 09:35 | Emergency (ER) | payer OTHER ==
[~2019-04-02] VITALS: Wt 84.8 kg
[2019-04-02] MEDS ORDERED: CEPHALEXIN500 M1 PO (09:57)
[2019-04-02] MEDS ORDERED: Motrin,Rufen800 MG PO (09:57)
== END 2019-04-02 10:00 | disposition home or self-care (01) ==
LOC: ED 09:35
DX: L03.032 Cellulitis of left toe (principal); I10 Essential (primary) hypertension; I25.10 Atherosclerotic heart disease of native coronary artery without angina pectoris; J44.9 Chronic obstructive pulmonary disease, unspecified; M17.12 Unilateral primary osteoarthritis, left knee; F17.210 Nicotine dependence, cigarettes, uncomplicated; Z91.018 Allergy to other foods; Z79.899 Other long term (current) drug therapy; Z86.73 Personal history of transient ischemic attack (TIA), and cerebral infarction without residual deficits

== ENCOUNTER 2019-05-22 23:45 | Emergency (ER) | payer OTHER ==
[~2019-05-22] VITALS: Ht 162.5 cm; Wt 83.5 kg
[2019-05-23 00:24] LABS: BASO % 0.7 % (0.0-1.0); EOS # 0.2 10*3/uL (0.0-0.4); EOS % 4.1 % (1.0-4.0); HEMATOCRIT 41.8 % (37.0-47.0); HEMOGLOBIN 13.8 g/dl (12.0-16.0); LYMPH % 52.2 % (27.0-41.0); MEAN CORPUSCULAR HGB 33.3 pg (27.0-31.0); MEAN PLATELET VOLUME 9.3 fl (9.6-12.3); MONO # 0.5 10*3/uL (0.1-1.0); MONO % 8.1 % (3.0-9.0); NEUT % 34.5 % (47.0-73.0); PLATELET COUNT AUTOMATED 269 10*3/uL (130-400); RED BLOOD COUNT 4.14 10*6/uL (4.10-5.10); RED CELL DISTRI WIDTH 17.1 % (0-14.5); WHITE BLOOD COUNT 5.7 10*3/uL (4.8-10.8)
[2019-05-23 00:38] LABS: ALBUMIN 3.7 gm/dl (3.1-4.5); ALKALINE PHOSPHATASE 121 U/L (45-117); BUN 7 mg/dl (7-24); CHLORIDE 104 mmol/L (98-107); CREATININE 0.88 mg/dL (0.55-1.02); SGOT/AST 132 IU/L (3-35); SGPT/ALT 78 U/L (12-78); SODIUM 137 mmol/L (136-145); TOTAL PROTEIN 8.1 gm/dL (6.4-8.2)
[2019-05-23 00:45] LABS: ACETAMINOPHEN (TYLENOL) < 5.0 ug/ml (10-30)
[2019-05-23 07:56] LABS: BILIRUBIN NEGATIVE (NEGATIVE); BLOOD NEGATIVE (NEGATIVE); CLARITY CLEAR (CLEAR); COLOR YELLOW (YELLOW); GLUCOSE NEGATIVE (NEGATIVE); KETONE NEGATIVE (NEGATIVE); LEUKO ESTERASE NEGATIVE (NEGATIVE); NITRITE NEGATIVE (NEGATIVE); PH 7.5 (5.0-9.0); SPECIFIC GRAVITY 1.005 (1.005-1.030); UROBILINOGEN 0.2 E.U./dl (0.2-1.0)
[2019-05-23 07:58] LABS: EPITHELIAL CELLS 0-2
[2019-05-23 08:01] LABS: URINE AMPHETAMINES < 1000 (1000ng/ml); URINE BARBITURATES < 200 (200ng/ml); URINE BENZODIAZEPINES < 200 (200ng/ml); URINE CANNABINOIDS (THC) < 50 (50ng/ml); URINE COCAINE < 300 (300ng/ml); URINE METHADONE < 300 (300ng/ml); URINE OPIATES < 300 (300ng/ml)
[2019-05-23 08:02] LABS: URINE PHENCYCLIDINE < 25 (25ng/ml)
== END 2019-05-23 09:35 | disposition home or self-care (01) ==
LOC: ED 23:45
PROVIDERS: Emergency Medicine
DX: F31.9 Bipolar disorder, unspecified (principal); F10.129 Alcohol abuse with intoxication, unspecified; F41.9 Anxiety disorder, unspecified; G89.29 Other chronic pain; E78.00 Pure hypercholesterolemia, unspecified; G43.909 Migraine, unspecified, not intractable, without status migrainosus; E66.9 Obesity, unspecified; I10 Essential (primary) hypertension; J44.9 Chronic obstructive pulmonary disease, unspecified; F14.10 Cocaine abuse, uncomplicated; F11.10 Opioid abuse, uncomplicated; F17.210 Nicotine dependence, cigarettes, uncomplicated; Z91.018 Allergy to other foods; Z79.899 Other long term (current) drug therapy; Z79.2 Long term (current) use of antibiotics; Z86.711 Personal history of pulmonary embolism; Z68.30 Body mass index [BMI] 30.0-30.9, adult; Z86.73 Personal history of transient ischemic attack (TIA), and cerebral infarction without residual deficits; Y90.8 Blood alcohol level of 240 mg/100 ml or more

== ENCOUNTER → 2019-06-18 | Outpatient (CLI) | payer OTHER | END | disposition home or self-care (01) | LOC: RAD 11:02 | DX: M25.512 Pain in left shoulder (principal) ==

== ENCOUNTER 2019-07-05 10:34 | Emergency (ER) | payer OTHER ==
[~2019-07-05] VITALS: Ht 160 cm; Wt 86.2 kg
--- NOTE | 2019-07-05 11:05 | NUR ---
PATIENT PLACED ON O2 FOR COMFORT ONLY.
[2019-07-05 11:18] LABS: ARTERIAL BLOOD GAS PH 7.407 (7.35-7.45)
[2019-07-05 11:28] LABS: ACT PARTIAL THROMBO TIME 23.6 SECONDS (20.0-32.1); INTERNATIONAL NORM RATIO 0.9 (2.0-3.5)
[2019-07-05 11:35] LABS: ALBUMIN 3.2 gm/dl (3.1-4.5); BUN 7 mg/dl (7-24); CHLORIDE 107 mmol/L (98-107); CREATININE 0.73 mg/dL (0.55-1.02); POTASSIUM 3.5 mmol/L (3.5-5.1); SGOT/AST 89 IU/L (3-35); SGPT/ALT 62 U/L (12-78); SODIUM 139 mmol/L (136-145)
[2019-07-05 11:39] LABS: ALKALINE PHOSPHATASE 148 U/L (45-117); TOTAL PROTEIN 7.4 gm/dL (6.4-8.2)
[2019-07-05 11:40] LABS: TROPONIN I < 0.015 ng/ml (<0.045)
[2019-07-05 11:43] LABS: BASO % 0.8 % (0.0-1.0); EOS # 0.2 10*3/uL (0.0-0.4); EOS % 3.1 % (1.0-4.0); HEMATOCRIT 37.3 % (37.0-47.0); LYMPH # 1.6 10*3/uL (1.3-4.4); LYMPH % 33.1 % (27.0-41.0); MEAN CELL VOLUME 102.5 fl (81.0-99.0); MEAN CORPUSCULAR HGB CONC 32.2 g/dl (33.0-37.0); MEAN PLATELET VOLUME 9.9 fl (9.6-12.3); MONO # 0.5 10*3/uL (0.1-1.0); MONO % 9.4 % (3.0-9.0); NEUT # 2.6 10*3/uL (2.3-7.9); NEUT % 53.2 % (47.0-73.0); PLATELET COUNT AUTOMATED 205 10*3/uL (130-400); RED BLOOD COUNT 3.64 10*6/uL (4.10-5.10); RED CELL DISTRI WIDTH 16.1 % (0-14.5); WHITE BLOOD COUNT 4.8 10*3/uL (4.8-10.8)
[2019-07-05 12:13] VITALS: BP 113/75
--- NOTE | 2019-07-05 12:15 | NUR ---
PATIENT REFUSES TO BE ADMITTED WHEN REGISTRATION WAS IN ROOM TO HAVE PATIENT SIGN.
[2019-07-05] MEDS ORDERED: PREDNISONE50 MG PO (12:32)
[2019-07-05] MEDS ORDERED: VIBRAMYCIN100 MG PO (12:32)
[2019-07-05 12:38] VITALS: BP 113/75
== END 2019-07-05 12:41 | disposition home or self-care (01) ==
LOC: ED 10:34 → EDHOLD 12:06 → ED 12:06
PROVIDERS: Emergency Medicine
DX: J44.1 Chronic obstructive pulmonary disease with (acute) exacerbation (principal); G89.29 Other chronic pain; M51.36 Other intervertebral disc degeneration, lumbar region; E78.00 Pure hypercholesterolemia, unspecified; G43.909 Migraine, unspecified, not intractable, without status migrainosus; E66.9 Obesity, unspecified; K21.9 Gastro-esophageal reflux disease without esophagitis; M17.12 Unilateral primary osteoarthritis, left knee; F17.210 Nicotine dependence, cigarettes, uncomplicated; Z68.30 Body mass index [BMI] 30.0-30.9, adult; Z91.018 Allergy to other foods; Z79.899 Other long term (current) drug therapy; Z79.2 Long term (current) use of antibiotics; Z86.73 Personal history of transient ischemic attack (TIA), and cerebral infarction without residual deficits

== ENCOUNTER 2019-08-15 17:04 | Emergency (ER) | payer OTHER ==
[~2019-08-15] VITALS: Ht 165.1 cm; Wt 90.7 kg
== END 2019-08-15 18:55 | disposition home or self-care (01) ==
LOC: ED 17:04
DX: M54.16 Radiculopathy, lumbar region (principal); I10 Essential (primary) hypertension; F41.9 Anxiety disorder, unspecified; J45.909 Unspecified asthma, uncomplicated; F31.9 Bipolar disorder, unspecified; F17.200 Nicotine dependence, unspecified, uncomplicated; Z91.018 Allergy to other foods; Z79.899 Other long term (current) drug therapy; Z79.2 Long term (current) use of antibiotics; Z86.73 Personal history of transient ischemic attack (TIA), and cerebral infarction without residual deficits

== ENCOUNTER 2020-02-28 10:34 | Emergency (ER) | payer OTHER ==
[~2020-02-28] VITALS: Wt 88.9 kg
[2020-02-28] MEDS ORDERED: PROVENTIL HFA6.7 GM INH (11:00)
[2020-02-28] MEDS ORDERED: PREDNISONE20 M1 PO (11:00)
[2020-02-28] MEDS ORDERED: SPIRIVA -- 3018 MCG INH (11:00)
[2020-02-28] MEDS ORDERED: TYLENOL325 M1 PO (11:00)
== END 2020-02-28 11:19 | disposition home or self-care (01) ==
LOC: ED 10:34
DX: M54.2 Cervicalgia (principal); H92.02 Otalgia, left ear; J44.9 Chronic obstructive pulmonary disease, unspecified; M26.609 Unspecified temporomandibular joint disorder, unspecified side; F41.9 Anxiety disorder, unspecified; F31.9 Bipolar disorder, unspecified; E78.00 Pure hypercholesterolemia, unspecified; Z91.018 Allergy to other foods; Z79.899 Other long term (current) drug therapy

== ENCOUNTER 2020-07-01 11:57 | Inpatient (IN) | payer OTHER ==
[~2020-07-01] VITALS: Ht 167.6 cm; Wt 94.8 kg
[~2020-07-01 11:57] MED LIST changes: +SPIRIVA -- 3018 MCG INH; +TYLENOL325 M1 PO
[2020-07-01 12:04] VITALS: BP 93/53
[2020-07-01 12:31] LABS: MEAN CELL VOLUME 112.4 fl (81.0-99.0); MEAN CORPUSCULAR HGB 37.6 pg (27.0-31.0); MEAN CORPUSCULAR HGB CONC 33.5 g/dl (33.0-37.0); MEAN PLATELET VOLUME 8.9 fl (9.6-12.3); PLATELET COUNT AUTOMATED 239 10*3/uL (130-400); RED BLOOD COUNT 3.56 10*6/uL (4.10-5.10); RED CELL DISTRI WIDTH 15.6 % (0-14.5); WHITE BLOOD COUNT 5.6 10*3/uL (4.8-10.8)
[2020-07-01 12:34] LABS: ALBUMIN 3.3 gm/dl (3.1-4.5); ALKALINE PHOSPHATASE 115 U/L (45-117); BUN 4 mg/dl (7-24); CHLORIDE 111 mmol/L (98-107); CREATININE 0.68 mg/dL (0.55-1.02); LIPASE 173 U/L (73-393); POTASSIUM 3.8 mmol/L (3.5-5.1); SGOT/AST 86 IU/L (3-35); SGPT/ALT 40 U/L (12-78); SODIUM 144 mmol/L (136-145); TOTAL PROTEIN 7.3 gm/dL (6.4-8.2)
[2020-07-01 12:41] LABS: BETA-HCG, QUANT < 1.0 mIU/mL (1-3)
[2020-07-01 12:53] LABS: BILIRUBIN Negative (Negative); BLOOD Negative (Negative); CLARITY Cloudy (Clear); COLOR Yellow (Yellow); GLUCOSE Negative (Negative); KETONE Trace (Negative); LEUKO ESTERASE 1+ (Negative); NITRITE Negative (Negative)
[2020-07-01 13:01] LABS: BACTERIA TRACE; URINE AMPHETAMINES < 1000 (1000ng/ml); URINE BARBITURATES < 200 (200ng/ml); URINE BENZODIAZEPINES < 200 (200ng/ml); URINE CANNABINOIDS (THC) < 50 (50ng/ml); URINE COCAINE < 300 (300ng/ml); URINE METHADONE < 300 (300ng/ml); URINE OPIATES < 300 (300ng/ml); URINE PHENCYCLIDINE < 25 (25ng/ml)
[2020-07-01 13:11] LABS: PLATELET SUFFICIENCY NORMAL (NORMAL); TOTAL CELLS COUNTED 100 #CELLS
== END 2020-07-01 19:31 | disposition left against medical advice (07) | DRG 770 ==
LOC: ED 11:57 → EDHOLD 13:56
PROVIDERS: Emergency Medicine; ADMIT Internal Medicine; ATTEND Internal Medicine
DX: F10.239 Alcohol dependence with withdrawal, unspecified (principal); K21.9 Gastro-esophageal reflux disease without esophagitis; K08.409 Partial loss of teeth, unspecified cause, unspecified class; F41.9 Anxiety disorder, unspecified; F31.9 Bipolar disorder, unspecified; M51.36 Other intervertebral disc degeneration, lumbar region; Z53.29 Procedure and treatment not carried out because of patient's decision for other reasons; M54.16 Radiculopathy, lumbar region; J44.1 Chronic obstructive pulmonary disease with (acute) exacerbation; F17.210 Nicotine dependence, cigarettes, uncomplicated; B19.20 Unspecified viral hepatitis C without hepatic coma; E87.8 Other disorders of electrolyte and fluid balance, not elsewhere classified; Z91.02 Food additives allergy status; Z98.51 Tubal ligation status; Z86.711 Personal history of pulmonary embolism; Z68.33 Body mass index [BMI] 33.0-33.9, adult